=== PATIENT | male | born 1935 | race Caucasian/White ===

== ENCOUNTER 2016-05-21 16:04 | Inpatient (IN) | payer MEDICARE ==
[~2016-05-21] VITALS: Ht 172.7 cm; Wt 82.9 kg
[2016-05-21] VITALS (8 sets, daily range): BP systolic 134–152; BP diastolic 62–89; PULSE 65–92; RESP 18–26; O2SAT 92–98
[~2016-05-21 16:04] MED LIST: AMLO10TA3 PO; ASPI-973 PO; ATOR40TA69 PO; CHOL100045 PO; CILO100T2 PO; FOSI10TA2 PO; FUR20 PO; METO-272 PO; PANT40TA3 PO; PRED50TA PO
--- NOTE | 2016-05-21 16:25 | ED.REPORT ---
HPI-Dyspnea / Wheezing Date of Service May 21, 2016 ED Provider: Ha Dougherty MD Pt is an 80 year old male on 2L O2 at home presenting to the ED via EMS complaining of a yellow sputum producing cough onset a week ago. Associated symptoms include SOB and wheezing. Denies fever, vomiting, chest pain, abd pain. Pt was admitted to [facility] with healthcare related pneumonia 1 month ago. Nursing Notes Stated Complaint: SHORTNESS OF BREATH Chief Complaint: Respiratory Distress Nursing Notes Reviewed: Yes Allergies: Coded Allergies: No Known Allergies (Verified , 04/01/16) Scheduled Amlodipine (Amlodipine) 10 Mg Tablet 10 MG PO DAILY Aspirin (Aspirin) 81 Mg Tablet 81 MG PO DAILY Atorvastatin Calcium (Atorvastatin Calcium) 40 Mg Tablet 40 MG PO HS Cholecalciferol (Vitamin D3) (Vitamin D) 1,000 Unit Capsule 1,000 UNIT PO DAILY Cilostazol (Cilostazol) 100 Mg Tablet 100 MG PO BIDAC Fosinopril Sodium (Fosinopril Sodium) 10 Mg Tablet 10 MG PO HS Furosemide (Furosemide) 20 Mg Tab 20 MG PO QAM Metoprolol Succinate ER (Metoprolol Succinate ER) 50 Mg Tab.er.24h 50 MG PO QAM Pantoprazole DR (Pantoprazole DR) 40 Mg Tablet.dr 40 MG PO BID Prednisone (PredniSONE) 50 Mg Tablet 50 MG PO DAILY x 5 days General Time Seen by MD: 16:20 Chief Complaint Cough Hx Obtained From: Patient Arrived By: Ambulance Sudden in Onset?: No Onset Occurred: 1 week ago Symptom Duration: Since onset Severity: Current: No pain currently Severity: Maximum: No pain Recent Healthcare: Recent doctor visit, Recent hospitalization Similar Sx Previous: Yes Past Medical History Past Medical History Notes: Full Code Past Medical History HTN Gout Cardiomyopathy, ischemic Hyperlipidemia LDL goal <130 CAD Claudication Psoriasis Reports: Atrial fibrillation Smoking History Former Smoker Social History Alcohol Use: 1-3 per week Other Social History: Good social support, , Local resident Ambulatory Status Independent Review of Systems Constitutional: Denies: Fever Respiratory: Reports: Non-productive cough, Prod cough, yellow, Shortness of breath, Wheezing Cardiovascular: Denies: Chest pain Complete sys rev & neg: except as marked. GI: Denies: Abdominal pain, Vomiting Physical Exam Initial Vital Signs Vital Signs (First) Date Time Temp Pulse Resp B/P Pulse Ox O2 Delivery O2 Flow Rate FiO2 05/21/16 16:09 92 20 143/79 98 Nasal Cannula 4 Initial VS: Reviewed Head / Eyes: Atraumatic, Normocephalic, PERRL ENT: Mucous membranes moist, Conjunctiva normal, No scleral icterus Abdomen / GI: Soft, Non-tender, No guarding, No rebound, No distention Skin: Warm, Dry, No cyanosis Neurologic: Alert, Oriented, Nonfocal Psychiatric: Mood/affect normal, Behavior normal, Normal thought content General/Constitutional: Awake, Alert Wheezing / Retractions: Positive: Wheeze insp/exp diffuse (Bilateral) Coarse breath sounds bilaterally Cardiovascular: Heart rate NL, Regular rhythm, Heart sounds NL, Peripheral circulation NL Lower Extremity / Pelvis / MS: Neurologic intact, Vascular intact 1+ bilateral LE edema. Interpretation & Diagnostics Lab Results Interpretation Result Diagram: 05/21/16 1700 05/21/16 1700 Test 05/21/16 17:00 White Blood Count 20.1th/mm3 (3.8-10.1) Red Blood Count 3.72mil/mm3 (4.40-5.80) Hemoglobin 9.2g/dL (13.8-17.2) Hematocrit 31.9% (41.0-50.0) Mean Corpuscular Volume 85.8fL (81-100) Mean Corpuscular Hemoglobin 24.7pg (27.0-35.0) Mean Corpuscular Hemoglobin Concent 28.8% (32.0-37.0) Red Cell Distribution Width 26.6% (12.3-15.4) Platelet Count 161bil/L (150-400) Neutrophils (%) (Auto) 93.0% (40-74) Lymphocytes (%) (Auto) 2.3% (14-46) Monocytes (%) (Auto) 2.6% (4-12) Eosinophils (%) (Auto) 0% (0-5) Basophils (%) (Auto) 0.1% (0-3) Prothrombin Time 9.4sec (8.1-12.5) Prothromb Time International Ratio 0.88ratio Sodium Level 143mEq/L (134-144) Potassium Level 5.2mEq/L (3.5-5.2) Chloride Level 101mEq/L (97-108) Carbon Dioxide Level 29mmol/L (18-29) Blood Urea Nitrogen 44mg/dL (8-27) Creatinine 1.16mg/dL (0.76-1.27) Estimat Glomerular Filtration Rate 64mL/min (>59) Glucose Level 152mg/dL (60-99) Lactic Acid Level 2.9mmol/L (0.4-2.0) Calcium Level 8.6mg/dL (8.5-10.1) Total Bilirubin 0.5mg/dL (0.0-1.2) Aspartate Amino Transf (AST/SGOT) 29U/L (0-50) Alanine Aminotransferase (ALT/SGPT) 99U/L (0-44) Alkaline Phosphatase 113U/L (25-160) Troponin T 0.038ug/L (0.0-0.011) Pro-B-Type Natriuretic Peptide 37474ei/mL (0-486) Total Protein 6.2g/dL (6.4-8.4) Albumin 3.4g/dL (3.4-5.0) ECG Interpretation ECG Interpretation: Atrial fibrillation. Rate 98. Time: 16:44 Interpreted by: ED physician X-Ray Chest Interpretation Chest Xray Interpretation: IMPRESSION: 1. Decreased but not resolved right lower lobe pneumonia. 2. Mild diffuse interstitial infiltrates and mild cardiomegaly, suggesting mild superimposed congestive heart failure. Dictated by: Jeannie Jaramillo M.D. on 05/21/2016 at 16:53 View: Portable, 1 view Interpretation / Wet Read by: Interpret - Radiologist Re-Eval/Medical Decision Med Decision/Clinical Course 80-year-old male history of atrial fibrillation, CAD, recent admission for healthcare associated pneumonia presenting with shortness of breath from assisted living facility. Patient occurring 2-4 L oxygen. His baseline is 2 L. He is a very poor historian unable to get a good history. Chest x-ray with right lower lobe pneumonia. Troponins 0.03. BNP 11,000 baseline 3-4000. Lactate 2.9. VSS Patient will be admitted for elevated troponins, sepsis, healthcare associated pneumonia. Cannot rule out NSTEMI though his tachycardia and BNP suggest possibly demand ischemia. We will treat with heparin drip, triple antibiotics with a dose of vancomycin, Levaquin, Zosyn given in ER. Given 2 L normal saline for sepsis. Full code per patient. Re-Evaluation/Progress : Time of Eval: 17:55 Patient Status: Condition improved Re-Evaluation/Progress Note: Discussed plan for admission. Pt understands and agrees with plan. Counseled Regarding: Diagnosis, Lab results, Need for follow-up, When/why to return to ED Discharge & Departure Impression: Primary Impression: Sepsis Additional Impressions: Healthcare-associated pneumonia Elevated troponin Disposition: Home Discharge Condition All VS Reviewed: Yes Condition: Improved Referrals: Roge Salazar PA-C (PCP) Crit Care Except Billable Proc Time Spent: 30-74 minutes Services Performed: Patient management by me, Time spent at bedside, Reviewing test results, Reviewing imaging, Discussing patient care, Documentation in record, Time with fam/surrogate Scribe Attestation Portions of this note were transcribed by Letty. I, Dr. Dougherty personally performed the history, physical exam and medical decision-making; I reviewed and confirmed the accuracy of the information in the transcribed note. Signed by: [place], 05/21/2016 and 2399. copies to: Roge Salazar PA-C, Ben M MD May 21, 2016 16:25 LETTY HATFIELD May 21, 2016 16:32
--- NOTE | 2016-05-21 16:56 | DRSVH ---
PROCEDURE: X-RAY CHEST ONE VIEW, PORTABLE ([id number]) INDICATIONS: dyspnea TECHNIQUE: One view of the chest was acquired. COMPARISON: [facility], CR, XR CHEST 1VW (PORTABLE), 04/12/2016, 5:23. [facility], CR, XR CHEST 1VW (PORTABLE), 04/14/2016, 3:20. FINDINGS: Surgical changes and devices: Sternotomy. Lungs and pleura: Right lower lobe infiltrates have decreased. Mild diffuse interstitial infiltrates . No pleural effusions or pneumothorax. Lungs are clear. Mediastinum: Mediastinal contours appear normal. Heart size is mild increased. Bones and chest wall: No suspicious bony lesions. Overlying soft tissues appear unremarkable. IMPRESSION: 1. Decreased but not resolved right lower lobe pneumonia. 2. Mild diffuse interstitial infiltrates and mild cardiomegaly, suggesting mild superimposed congesti ve heart failure. Dictated by: Jeannie Jaramillo M.D. on 05/21/2016 at 16:53 Approved by: Jeannie Jaramillo M.D. on 05/21/2016 at 16:55
[2016-05-21 17:26] LABS: EOSINOPHILS % (AUTO) 0 % (0-5)
[2016-05-21 17:31] LABS: BASOPHILS % (AUTO) 0.1 % (0-3); MONOCYTES % (AUTO) 2.6 % (4-12); Mean Corpuscular Hemoglobin 24.7 pg (27.0-35.0); Mean Corpuscular Volume 85.8 fL (81-100); Platelet Count 161 bil/L (150-400)
[2016-05-21] MEDS ORDERED: levoFLOXacin Inj 750 MG in IV Premix 1 EACH IV ONE (17:50)
[2016-05-21] MEDS ORDERED: Vancomycin Dose per Pharmacist XX ONE (17:50)
[2016-05-21] MEDS ORDERED: Piperacillin-Tazo 3.375 Gm Inj 3.375 GM in Dextrose 5% Minibag Plus 50 ML IV ONE (17:50)
[2016-05-21] MEDS ORDERED: 0.9% Sodium Chloride 1,000 ML IV SCH (18:05)
[2016-05-21 18:10] LABS: TROPONIN T 0.038 ug/L (0.0-0.011)
[2016-05-21] MEDS ORDERED: Polyethylene Glycol (PEG) 17 Gm Powder PO PRN (18:10)
[2016-05-21] MEDS ORDERED: Ondansetron 2 mg/mL 2 mL Inj IVPUSH PRN (18:10)
[2016-05-21] MEDS ORDERED: Alum-Mag Hydrox-Simeth 30 mL Suspension PO PRN (18:10)
[2016-05-21 18:11] LABS: INR 0.88 ratio
[2016-05-21] MEDS ORDERED: Heparin 5,000 Unit/mL Inj IVPUSH ONE ×2 (18:20→21:55)
[2016-05-21] MEDS ORDERED: Heparin 25K Unit/500mL 0.45 NS 25,000 UNIT in IV Premix 1 EACH IV ONE (18:20)
--- NOTE | 2016-05-21 18:23 | PCM.HPMED ---
Subjective Date of Service May 21, 2016 Primary Provider: Admitting Physician: Primary Care Physician: Roge Salazar PA-C Attending Physician: Chief Complaint: shortness of breath History of Present Illness: 80 year old male with h/o Hypertension, Hyperlipidemia, CHF, on 2L O2 at home presented to the ED via EMS with c/o worsening shortness of breath and productive cough. He states that symptoms started 1 week ago which is gradually worsening and is now associated with yellowish sputum production. He denies any fever, chest pain, vomiting, diarrhea, abdominal pain. He was admitted to [facility] with healthcare related pneumonia 1 month ago. In ED he was tachycardic , mildly hypertensive, SpO2 98% on 4L NC oxygen. Labs were significant for severe leukocytosis (20.1), low hematocrit (31.9), elevated lactic acid (2.9), elevated troponin (0.038[place] [address]. Allergies Coded Allergies: No Known Allergies (Verified , 04/01/16) PMH Social History Hx Alcohol Use: Yes Hx Substance Use: No Hx Tobacco Use: Yes Smoking Status: Former Smoker Exam Vital Signs Vital Sign - Last Date Time Temp Pulse Resp B/P Pulse Ox O2 Delivery O2 Flow Rate FiO2 05/21/16 16:09 92 20 143/79 98 Nasal Cannula 4 Exam General: Awake, Alert Head / Eyes: Atraumatic, Normocephalic, PERRL ENT: Mucous membranes moist, Conjunctiva normal, No scleral icterus Respiratory: in mild respiratory distress, decreased breath sounds bilaterally, Wheezing / Retractions: Positive: Wheeze insp/exp diffuse (Bilateral), Coarse breath sounds bilaterally Cardiovascular: Regular rate and rhythm, no murmur, no gallop. Abdomen: Soft, Non-tender, No guarding, No rebound, No distention Skin: Warm, Dry, No cyanosis Neurologic: Alert, Oriented, Nonfocal Psychiatric: Mood/affect normal, Behavior normal, Normal thought content Lab and Diagnostics Result Diagram: 05/21/16 1700 X-Rays, CTs and MRIs CXR: IMPRESSION: 1. Decreased but not resolved right lower lobe pneumonia. 2. Mild diffuse interstitial infiltrates and mild cardiomegaly, suggesting mild superimposed congestive heart failure. Assessment & Plan Elevated troponin - ? NSTEMI - Started on heparin drip Pneumonia - Likely HCAP due to recent admission - Will start on broad spectrum antibiotics, vancomycin and zosyn - Blood culture x 2, Sputum culture CHF exacerbation - elevated pro BNP of 11,887 - Will start on IV lasix GI ppx: Pantoprazole DVT ppx: on heparin Anti emetics / Analgesics prn as per protocol Code: Full code Status: To be admitted as inpatient due to complexity of medical condition that will require more than two days of hospital stay. Pain Evaluation: Adequate Pain Control GI Prophylaxis: Proton Pump Inhibitor VTE Prophylaxis: Sub-Q Heparin (Unfractionated) Resuscitation Status: CPR: Attempt Resuscitation Caleb Troncoso MD May 21, 2016 18:23
--- NOTE | 2016-05-21 19:30 | NUR ---
Arrival on Floor Pt arrived on floor via gurney with IV Levaquin infusing. Pt denies any pain/discomfort. Family at bedside. 02 at 2L. Pt and family oriented to floor and use of call light.
--- NOTE | 2016-05-21 19:48 | PCM.CONPHA ---
Subjective Requesting Provider: Caleb Troncoso MD shortness of breath Reason for Pharmacy Consult: Vancomycin Dosing Assessment/Plan Assessment/Plan Vancomycin per pharmacy for patient with health care associated pneumonia with goal trough 15-20: Ht=68 inches Wt=82.9K Serum cr=1.16 Creatinine Clearance=47ml/min ([facility]) Vancomycin 1750mg IV x 1 load (20mg/kg) then 1500mg iv daily should produce a trough within the goal range (calculations confirmed in [facility]). A trough has been ordered for 192905/24/16. The pharmacy will adjust dosing as necessary , and follow daily progress. Sammi Pennington [facility] May 21, 2016 19:48
[2016-05-21] MEDS ORDERED: 0.9% Sodium Chloride 250 ML ONE (20:22)
[2016-05-21 20:29] LABS: APPEARANCE,URINE CLEAR (CLEAR,HAZY); COLOR,URINE YELLOW (YELLOW); OCCULT BLOOD,URINE TRACE (NEGATIVE); PH,URINE 5.5 (5.0-8.0); UROBILINOGEN,URINE NORMAL (NORMAL)
[2016-05-21] MEDS ORDERED: Vancomycin Inj 1,750 MG in Dextrose 5% 500 ML IV ONE (20:30)
[2016-05-21] MEDS: Furosemide 10 mg/mL 4 mL Inj IVPUSH SCH (20:39)
--- NOTE | 2016-05-21 21:30 | NUR ---
Admission Pt able to provided some answers r/t H&P. Med rec updated based on [facility] med list. Patient was asked about his other meds that were on his list last time he was here. Some meds were not in [facility]ie [facility]'s list. He does not remember them at this time. Will relay to Day RN to update in am. Per pt, he has a list but not here at this time. Addendum: 05/22/16 at 0544 by IVAN HART RN Family and patient expressed concern about being on blood thinners because of concern of bleeding. Family mentioned of patient having incident of coughing up blood and bleeding while on Warfarin before. Answered pt and pt's family questions.
[2016-05-21] MEDS ORDERED: Heparin 5,000 Unit/mL Inj IVPUSH PRN (21:55)
[2016-05-21] MEDS: Heparin 25K Unit/500mL 0.45 NS 25,000 UNIT in IV Premix 1 EACH IV SCH (22:22)
[2016-05-21] MEDS: Albuterol-Ipratropium 3 mL Inhalation Solution NEB PRN (22:33)
[2016-05-21] MEDS ORDERED: ALBU1.25 INHALATION (23:40)
[2016-05-21] MEDS ORDERED: DOCU250C2 PO (23:40)
[2016-05-21] MEDS ORDERED: MAALOX ADVANCED PO (23:40)
[2016-05-21] MEDS ORDERED: FURO40TA4 PO (23:40)
[2016-05-21] MEDS ORDERED: POTA10CA42 PO (23:40)
[2016-05-21] MEDS ORDERED: PANT40TA3 PO (23:40)
[2016-05-21] MEDS ORDERED: PRED50TA PO (23:40)
[2016-05-21] MEDS ORDERED: METO-274 PO (23:40)
[2016-05-21] MEDS ORDERED: MELA5TAB14 PO (23:40)
[2016-05-21] MEDS ORDERED: IPRA3AMP IH (23:40)
[2016-05-21] MEDS: Piperacillin-Tazo 3.375 Gm Inj 3.375 GM in Dextrose 5% Minibag Plus 50 ML IV SCH (23:49)
[2016-05-22] VITALS (10 sets, daily range): BP systolic 96–143; BP diastolic 64–91; PULSE 79–102; RESP 18–24; O2SAT 90–100
--- NOTE | 2016-05-22 04:56 | NUR ---
Telemetry Pt alert and oriented x3. Afib with HR 80s to 90s. Pt had 5 beats of Vtach. Pt was asymptomatic. made aware with new orders noted.. Tylenol given for pt's c/o knee discomfort. Blane patent with good UO. No bleeding noted/reported. Addendum: 05/22/16 at 0624 by IVAN HART RN Pt had about 13 beats of Vtach again this am. He was sleeping. Pt was asymptomatic. AIMEE Cervantespaged to
[2016-05-22 05:18] LABS: BASOPHILS % (AUTO) 0.1 % (0-3); EOSINOPHILS % (AUTO) 0 % (0-5); Mean Corpuscular Hemoglobin 24.6 pg (27.0-35.0); Mean Corpuscular Volume 86.5 fL (81-100); NEUTROPHILS % (AUTO) 92.1 % (40-74); Platelet Count 144 bil/L (150-400)
[2016-05-22] MEDS: Furosemide 10 mg/mL 4 mL Inj IVPUSH SCH (08:11)
[2016-05-22] MEDS: Pantoprazole 40 mg ER24 Tablet PO SCH (08:11)
[2016-05-22] MEDS: Piperacillin-Tazo 3.375 Gm Inj 3.375 GM in Dextrose 5% Minibag Plus 50 ML IV SCH ×2 (08:12→18:03)
[2016-05-22] MEDS: Vancomycin Dose per Pharmacist XX SCH (08:30)
[2016-05-22] MEDS: Albuterol-Ipratropium 3 mL Inhalation Solution NEB PRN (08:41)
[2016-05-22] MEDS ORDERED: AMLO10TA3 PO (09:44)
[2016-05-22] MEDS ORDERED: FOSI10TA2 PO (09:45)
--- NOTE | 2016-05-22 13:21 | NUR ---
Social Work Note: Initial Assessment Data& Assessment: EMR reviewed. SW met with pt and pt at bedside to discuss discharge planning, SW role explained. Trey Trotter is a 80 year old male admitted on 05/21/2016 for sepsis and healthcare assisted pneumonia. Pt has Medicare and [employer] supplemental insurance coverage. Pt is being followed by Roge AVINA for primary care. Pt came from [facility] where he was receiving rehab. Pt normally lives at home on [address] with his . Pt has been able to use a FWW recently for ambulation. Pt does not usually wear oxygen but has been requiring oxygen for the last month. Pt requires assistance with medication management and chores. Pt is otherwise independent at baseline with ADL's. Pt does not have a history with home health services. Pt does not have LTC insurance. Pt is a but not service connected. Pt explained he does not want to go back to [facility] for continued rehab and would rather go to a different facility. Pt explained [facility] and [facility] would be the top two preferences. SW confirmed with Brianna from [facility] that they are unable to accept new pt's at this time. [facility] admissions is closed on weekends. SW to follow up with [facility] tomorrow 05/23/2016 regarding referral. Pt and pt provided with SNF list for further preferences. Pt explained he would rather wait to review the list with his [facility]. Pt and pt also provided with [facility] paperwork to review and complete when possible. Pt and pt provided with SW phone number written on pt white board. Pt and pt deny any other needs at this time. SW to continue to follow. Plan: Anticipated discharge back to a SNF for continued rehab when medically ready. Pt explained he would prefer to not return to [facility]. SW to follow up with [facility] tomorrow regarding referral and follow up with pt regarding other SNF preferences. Pt and pt deny any other needs at this time. SW to continue to follow. ISHAAN Crews Addendum: 05/22/16 at 1333 by ISAI COSTELLO Amended: Links added.
--- NOTE | 2016-05-22 16:16 | PCM.PNMED ---
Subjective Date of Service May 22, 2016 Subjective The patient was seen and examined today. Patient complains of lethargy, shortness of breath, and generalized myalgias Exam Vital Signs Vital Sign - Last Date Time Temp Pulse Resp B/P Pulse Ox O2 Delivery O2 Flow Rate FiO2 05/22/16 13:30 36.4 102 20 122/64 96 Nasal Cannula 3.00 Intake and Output 05/21/16 05/21/16 05/22/16 Cumulative From/Thru 15:00 23:00 07:00 05/21/16 16:09 - 05/22/16 06:39 Intake Total 1523 ml 1523 ml Output Total 2175 ml 2175 ml Balance -652 ml -652 ml Intake Oral 736 ml 736 ml IV Total 787 ml 787 ml Output Urine Total 2175 ml 2175 ml Exam Physical Exam: GEN: Patient was awake, alert, responding appropriately to questions HEENT: PERRLA, EOMI, Neck soft supple, trachea midline, nomocephalic/atraumatic CV: +S1/S2, RRR, no murmurs auscultated Respiratory: Positive wheezing and rhonchi GI: +bowel sounds x4, soft, compressible, non TTP EXT: no c/c +2 pitting edema bilaterally Neuro: CN II-XII grossly intact Psych: mood and affect were appropriate IVs and Medications Medications Reviewed: Medications were reviewed in detail Medications Current Medications Sodium Chloride 1,000 ml @ 0 mls/hr Q0M IV; Start 05/21/16 at 18:05 Al Hydrox/Mg Hydrox/Simethicone 30 ml Q6H PRN PO; Start 05/21/16 at 18:10 Ondansetron HCl 4 to 8 mg Q4H PRN IVPUSH; Start 05/21/16 at 18:10 Senna 17.2 mg BID PRN PO; Start 05/21/16 at 18:10 Polyethylene Glycol 17 gm DAILY PRN PO; Start 05/21/16 at 18:10 Pharmacy Consult 1 ea 1 ea DAILY XX; Start 05/22/16 at 08:30 Piperacillin Sod/ Tazobactam Sod/ Dextrose/Water 50 ml @ 12.5 mls/hr Q8 IV Last administered on 05/22/16t 08:12; Admin Dose 12.5 MLS/HR; Start 05/22/16 at 00:30 Amlodipine Besylate 10 mg DAILY PO Last administered on 05/22/16 08:11; Admin Dose 10 MG; Start 05/22/16 at 08:30 Aspirin 81 mg DAILY PO Last administered on 05/22/16 08:11; Admin Dose 81 MG; Start 05/22/16 at 08:30 Atorvastatin Calcium 40 mg HS PO Last administered on 05/21/16 22:24; Admin Dose 40 MG; Start 05/21/16 at 21:00 Cholecalciferol 1,000 unit DAILY PO Last administered on 05/22/16 08:11; Admin Dose 1,000 UNIT; Start 05/22/16 at 08:30 Cilostazol 100 mg BID PO Last administered on 05/22/16 08:11; Admin Dose 100 MG ; Start 05/21/16 at 20:30 Furosemide 20 mg DAILY PO; Start 05/22/16 at 08:30; Stop 05/22/16 at 08:30; Status DC Pantoprazole 40 mg DAILYAC PO Last administered on 05/22/16 08:11; Admin Dose 40 MG; Start 05/22/16 at 07:30 Furosemide 40 mg 40 mg DAILY IVPUSH Last administered on 05/22/16 08:11; Admin Dose 40 MG; Start 05/21/16 at 18:15 Vancomycin HCl/ Dextrose/Water 500 ml @ 333.333 mls/hr DAILY@2030 IV; Start at 20:30 Heparin Sodium (Porcine) Per Protocol for a... PRN PRN IVPUSH; Start 05/21/16 at 21:55 Albuterol/ Ipratropium 3 ml Q6H PRN NEB Last administered on 05/22/16 08:41; Admin Dose 3 ML; Start 05/21/16 at 21:58 Acetaminophen 650 mg Q6H PRN PO Last administered on 05/22/16 12:52; Admin Dose 650 MG; Start 05/22/16 at 12:40 Lab and Diagnostics Result Diagram: 05/22/16 0430 05/22/16 0430 X-Rays, CTs and MRIs CXR: IMPRESSION: 1. Decreased but not resolved right lower lobe pneumonia. 2. Mild diffuse interstitial infiltrates and mild cardiomegaly, suggesting mild superimposed congestive heart failure. Assessment & Plan 80-year-old male with increasing shortness of breath with a history of CHF and possible new onset of pneumonia Elevated troponin - ?NSTEMI - Started on heparin drip -Currently trending troponins however this may be secondary to troponin leak will continue to monitor Leukocytosis most likely secondary to Pneumonia - Likely HCAP due to recent admission - Will start on broad spectrum antibiotics, vancomycin and zosyn - Patient is currently responding to antibiotic therapy white blood cell count has decreased from 20.1-17.1 - Blood culture x 2 pending, negative for influenza Sputum culture - We will continue to monitor CHF exacerbation - elevated pro BNP of 11,887 -Continue IV Lasix 40 mg daily patient's urinary output is -1.1 L we will consider adding an evening dose of Lasix - Continue oxygen as needed maintain oxygen saturations are 92% and above GI ppx: Pantoprazole DVT ppx: on heparin Anti emetics / Analgesics prn as per protocol Code: Full code Disposition: Patient is currently responding to antibiotic therapy as well as diuretic therapy. The patient is currently -1.1 L of fluid in his white blood cell count is trending down. We will continue to monitor the patient. GI Prophylaxis: Proton Pump Inhibitor VTE Prophylaxis: Sub-Q Heparin (Unfractionated) Resuscitation Status: CPR: Attempt Resuscitation Ana María Corcoran DO May 22, 2016 16:16
--- NOTE | 2016-05-22 19:01 | NUR ---
Respiratory and Heparin gtt Lungs sounds very wet, SOB with act and at rest. IV lasix and ABX scheduled. [place], O2 and STUDENT [employer]ISTRY PAST[employer] in place. Up to chair for meals. Heparin gtt continues at 950. values within goal this shift. Next PTT in AM. Small amount of blood with blowing nose this evening. Stool light brown and sent for testing.
[2016-05-23] VITALS (10 sets, daily range): BP systolic 93–166; BP diastolic 52–84; PULSE 91–111; RESP 20–28; O2SAT 93–99
[2016-05-23] MEDS: Piperacillin-Tazo 3.375 Gm Inj 3.375 GM in Dextrose 5% Minibag Plus 50 ML IV SCH ×4 (00:09→23:44)
[2016-05-23] MEDS: Heparin 25K Unit/500mL 0.45 NS 25,000 UNIT in IV Premix 1 EACH IV SCH (00:09)
[2016-05-23] MEDS: Albuterol-Ipratropium 3 mL Inhalation Solution NEB PRN (00:15)
[2016-05-23] MEDS ORDERED: diphenhydrAMINE 2.5 mg/mL 5 mL Syrup PO ONE (00:50)
[2016-05-23 06:06] LABS: BASOPHILS % (AUTO) 0.1 % (0-3); EOSINOPHILS % (AUTO) 0.1 % (0-5); MONOCYTES % (AUTO) 2.6 % (4-12); Mean Corpuscular Hemoglobin 24.3 pg (27.0-35.0); Mean Corpuscular Volume 85.7 fL (81-100); Platelet Count 147 bil/L (150-400)
--- NOTE | 2016-05-23 06:46 | NUR ---
Breathing Pattern Pt has been having difficulty in breathing. Neb Tx administered by RT seems ineffective. Pt has been breathing thru his mouth most of the time. Denies chest pain, but having moderate sob. Pt has not had much sleep and is saturating low 80's while asleep even with o2 4.5LPM.
[2016-05-23 07:51] LABS: TROPONIN T 0.045 ug/L (0.0-0.011)
[2016-05-23] MEDS: Pantoprazole 40 mg ER24 Tablet PO SCH (08:25)
[2016-05-23] MEDS: Vancomycin Dose per Pharmacist XX SCH (08:25)
[2016-05-23] MEDS: Furosemide 10 mg/mL 4 mL Inj IVPUSH SCH (08:25)
--- NOTE | 2016-05-23 09:06 | NUR ---
HUE signed. ISHAAN Pollock
--- NOTE | 2016-05-23 14:50 | NUR ---
Social Work-continued d/c planning: Data:EMR Reviewed. Pt is on day 2 of hospitalization for sepsis per H&P. Pt is not medically stable, anticipate several more days. SW followed up with pt, daughter, and at bedside to discuss discharge planning, SW role explained. Pt came to hospital from [facility]. Pt and family in agreement that pt will not return there at discharge. Daughter informed SW that their first choice is [facility]. SW explained that [facility] is not currently taking pt and SW spoke with Christiana Lucas at [facility] this morning and they are not taking pt's either due to flu. Daughter states the only other facilities they may consider would be [place]. SW called Renee at [place] and left message. SW called Renee at [place] and spoke with admissions Kia, no male beds, and no discharges scheduled for this week.Paperwork in the chart. SW will continue to follow. Assessment:Pt who would benefit from SNF. Plan:Pt/family not willing to have pt return to [facility]. SW has left message at Renee at [place]. Paperwork in the chart. SW will continue to follow. ISHAAN Pollock
--- NOTE | 2016-05-23 18:16 | PCM.PNMED ---
Subjective Date of Service May 23, 2016 Subjective Patient was seen and examined at bedside today. Patient seems to be lethargic, and reports shortness of breath. A discussion with the and daughter was held at bedside today and they state that he has never had a diagnosis And that this is a new diagnosis for him. Exam Vital Signs Vital Sign - Last Date Time Temp Pulse Resp B/P Pulse Ox O2 Delivery O2 Flow Rate FiO2 05/23/16 16:58 36.6 108 20 93/52 96 Room Air 05/23/16 10:59 5.00 Intake and Output 05/22/16 05/22/16 05/23/16 Cumulative From/Thru 15:00 23:00 07:00 05/21/16 16:09 - 05/23/16 06:39 Intake Total 250 ml 935 ml 1162 ml 3870 ml Output Total 750 ml 400 ml 400 ml 3725 ml Balance -500 ml 535 ml 762 ml 145 ml Intake Oral 935 ml 100 ml 1771 ml IV Total 250 ml 1062 ml 2099 ml Output Urine Total 750 ml 400 ml 400 ml 3725 ml # Bowel Movements 1 1 Exam GEN: Patient was awake, alert, responding appropriately to questions HEENT: PERRLA, EOMI, Neck soft supple, trachea midline, nomocephalic/atraumatic CV: +S1/S2, RRR, no murmurs auscultated Respiratory: Positive wheezing and rhonchi GI: +bowel sounds x4, soft, compressible, non TTP EXT: no c/c +2 pitting edema bilaterally Neuro: CN II-XII grossly intact Psych: mood and affect were appropriate IVs and Medications Medications Reviewed: Medications were reviewed in detail Medications Current Medications Al Hydrox/Mg Hydrox/Simethicone 30 ml Q6H PRN PO; Start 05/21/16 at 18:10 Ondansetron HCl 4 to 8 mg Q4H PRN IVPUSH; Start 05/21/16 at 18:10 Senna 17.2 mg BID PRN PO; Start 05/21/16 at 18:10 Polyethylene Glycol 17 gm DAILY PRN PO; Start 05/21/16 at 18:10 Pharmacy Consult 1 ea 1 ea DAILY XX; Start 05/22/16 at 08:30 Piperacillin Sod/ Tazobactam Sod/ Dextrose/Water 50 ml @ 12.5 mls/hr Q8 IV Last administered on 05/23/16 17:52; Admin Dose 12.5 MLS/HR; Start 05/22/16 at 00:30 Amlodipine Besylate 10 mg DAILY PO Last administered on 05/23/16 08:25; Admin Dose 10 MG; Start 05/22/16 at 08:30 Aspirin 81 mg DAILY PO Last administered on 05/23/16 08:25; Admin Dose 81 MG; Start 05/22/16 at 08:30 Atorvastatin Calcium 40 mg HS PO Last administered on 05/22/16 21:02; Admin Dose 40 MG; Start 05/21/16 at 21:00 Cholecalciferol 1,000 unit DAILY PO Last administered on 05/23/16 08:25; Admin Dose 1,000 UNIT; Start 05/22/16 at 08:30 Cilostazol 100 mg BID PO Last administered on 05/23/16 08:25; Admin Dose 100 MG ; Start 05/21/16 at 20:30 Furosemide 20 mg DAILY PO; Start 05/22/16 at 08:30; Stop 05/22/16 at 08:30; Status DC Pantoprazole 40 mg DAILYAC PO Last administered on 05/23/16 08:25; Admin Dose 40 MG; Start 05/22/16 at 07:30 Furosemide 40 mg 40 mg DAILY IVPUSH Last administered on 05/23/16 08:25; Admin Dose 40 MG; Start 05/21/16 at 18:15 Vancomycin HCl/ Dextrose/Water 500 ml @ 333.333 mls/hr DAILY@2030 IV Last administered on 05/22/16 21:01; Admin Dose 333.333 MLS/HR; Start 05/22/16 at 20 :30 Heparin Sodium (Porcine) Per Protocol for a... PRN PRN IVPUSH; Start 05/21/16 at 21:55 Albuterol/ Ipratropium 3 ml Q6H PRN NEB Last administered on 05/23/16 00:15; Admin Dose 3 ML; Start 05/21/16 at 21:58 Acetaminophen 650 mg Q6H PRN PO Last administered on 05/22/16 12:52; Admin Dose 650 MG; Start 05/22/16 at 12:40 Lab and Diagnostics Result Diagram: 05/23/16 0540 05/23/16 0540 X-Rays, CTs and MRIs CXR: IMPRESSION: 1. Decreased but not resolved right lower lobe pneumonia. 2. Mild diffuse interstitial infiltrates and mild cardiomegaly, suggesting mild superimposed congestive heart failure. Cardiac Echo Impressions Echocardiogram Report Name: JOSIE DE LEON Date: 04/02/2016 Height: 67 in Hospital Exam Location: [facility] Weight: 170 lb Gender: Male BSA: 1.9 m2 : 1935 Age: 80 yrs BP: 127/72 mmHg Reason For Study: Pneumonia Ordering Physician: Performed By: [facility] Interpretation Summary Left ventricular systolic function is mildly reduced with the ejection fraction visually estimated to be 50-55% with borderline global hypokinesis and more severe hypokinesis in the proximal inferior and inferoposterior segment which appears unchanged from the previous study. There is also a significant dyssynchronous contraction pattern, consistent with a conduction abnormality, and septal motion consistent with a post-operative state but there has been no significant change since the previous study. The right ventricle is not well visualized but grossly appears to be is mildly dilated with borderline reduced systolic function, and grossly appears slightly larger and less dynamic compared to the previous study. There is moderate pulmonary hypertension with the right ventricular systolic pressure estimated at 56 mmHg assuming a right atrial pressure of 15 mm Hg, and is higher compared to the previous study. The left atrium is moderately dilated while right atrial size is normal. The right atrium has mildly decreased in size since the prior echo exam. There is mild to moderate mitral regurgitation that appears slightly less prominent compared to the previous study and mild to moderate tricuspid regurgitation that appears unchanged. There is no other significant valvular heart disease. The patient was in atrial fibrillation with heart rates between 96-121 bpm during the exam which is considerably faster compared to the previous study. Assessment & Plan 80-year-old male with increasing shortness of breath with a history of CHF and possible new onset of pneumonia Elevated troponin - ?NSTEMI - Started on heparin drip -Currently trending troponins however this may be secondary to troponin leak will continue to monitor Leukocytosis most likely secondary to Pneumonia - Likely HCAP due to recent admission - Will start on broad spectrum antibiotics, vancomycin and zosyn - Patient is currently responding to antibiotic therapy white blood cell count has decreased from 20.1-->17.1-->15.7 today - Blood culture x 2 pending, negative for influenza Sputum culture - We will continue to monitor CHF exacerbation - elevated pro BNP of 11,887 -Continue IV Lasix 40 mg daily continue to monitor patient's urinary output and kidney function - Continue oxygen as needed maintain oxygen saturations are 92% and above - Patient had an echo done 04/02/2016 which stated that the patient had a decreased ejection fraction of 50-55% along with wall dyskinesia - Consult cardiology GI ppx: Pantoprazole DVT ppx: on heparin Anti emetics / Analgesics prn as per protocol Code: Full code Disposition: Patient is currently responding to antibiotic therapy. However the patient is now not diuresing as well as he had the last couple days. Will consult cardiology for further recommendations as the patient's volume overload is most likely secondary to CHF exacerbation. GI Prophylaxis: Proton Pump Inhibitor VTE Prophylaxis: Sub-Q Heparin (Unfractionated) Resuscitation Status: CPR: Attempt Resuscitation Time spent Greater than 35 minutes Ana María Corcoran DO May 23, 2016 18:16
--- NOTE | 2016-05-23 19:09 | NUR ---
Respiratory and C-Diff SOB and wet lungs sounds continue. IV lasix and sanchez, O2 and BOBBIN FIXER in place. Provider notified. strategic analyst notified and assessed. Notified of c-diff in history x 1mo ago, enteric precautions posted at this time.
[2016-05-23] MEDS ORDERED: Vancomycin Serum Trough XX ONE (19:30)
[2016-05-23] MEDS ORDERED: Furosemide 10 mg/mL 4 mL Inj IVPUSH ONE (20:30)
[2016-05-24] VITALS (10 sets, daily range): BP systolic 119–145; BP diastolic 63–76; PULSE 97–136; RESP 20–26; O2SAT 94–98
[2016-05-24] MEDS: Heparin 25K Unit/500mL 0.45 NS 25,000 UNIT in IV Premix 1 EACH IV SCH (02:35)
--- NOTE | 2016-05-24 04:48 | NUR ---
Respiratory / Insomnia Pt tachypneic at beginning of shift with coarse crackles and wheezes to lungs, denies feeling dyspneic but immediately desaturates on RA to 70s-80s. Pt afib 110s-120s. MD rivera, one time IVP 40mg Lasix administered with increased urine output on reassessment but no change to lung assessment. Pt on 4L oxymask at this time with SPO2 91-97%. Pt very cognizant of respiratory status, consistently reports efforts to breathe effectively. Pt c/o significant insomnia this shift, requests trazodone at HS without effectiveness on reassessment. MD rivera, PRN melatonin ordered and administered with pt resting upon reassessment. No c/o pain this shift.
[2016-05-24 06:19] LABS: BASOPHILS % (AUTO) 0.1 % (0-3); EOSINOPHILS % (AUTO) 0 % (0-5); MONOCYTES % (AUTO) 1.9 % (4-12); Mean Corpuscular Hemoglobin 24.8 pg (27.0-35.0); Mean Corpuscular Volume 84.5 fL (81-100); NEUTROPHILS % (AUTO) 94.5 % (40-74); Platelet Count 125 bil/L (150-400)
[2016-05-24] MEDS: Vancomycin Dose per Pharmacist XX SCH (08:30)
[2016-05-24] MEDS: Pantoprazole 40 mg ER24 Tablet PO SCH (09:03)
[2016-05-24] MEDS: Piperacillin-Tazo 3.375 Gm Inj 3.375 GM in Dextrose 5% Minibag Plus 50 ML IV SCH ×2 (09:04→16:25)
[2016-05-24] MEDS: Furosemide 10 mg/mL 4 mL Inj IVPUSH SCH (09:04)
--- NOTE | 2016-05-24 10:31 | NUR ---
Pletal medication is being held until Dr Corcoran can talk with cardiology about the medication.
[2016-05-24] MEDS: predniSONE 20 mg Tablet PO SCH (13:10)
--- NOTE | 2016-05-24 15:57 | PCM.PNMED ---
Subjective Date of Service May 24, 2016 Subjective Patient was examined at bedside today. Patient denies any chest pain, nausea, vomiting, diarrhea. Patient reports that he still having some shortness of breath and needs the oxygen. He also complains of lower extremity edema and insomnia. Exam Vital Signs Vital Sign - Last Date Time Temp Pulse Resp B/P Pulse Ox O2 Delivery O2 Flow Rate FiO2 05/24/16 15:03 36.8 97 22 143/73 94 OxyMask 4.00 Intake and Output 05/23/16 05/23/16 05/24/16 Cumulative From/Thru 15:00 23:00 07:00 05/21/16 16:09 - 05/24/16 06:58 Intake Total 85 ml 1111 ml 930 ml 5996 ml Output Total 900 ml 925 ml 5550 ml Balance 85 ml 211 ml 5 ml 446 ml Intake Oral 875 ml 100 ml 2746 ml IV Total 85 ml 236 ml 830 ml 3250 ml Output Urine Total 900 ml 925 ml 5550 ml # Bowel Movements 1 2 Exam Physical Exam: GEN: Patient was awake, alert, responding appropriately to questions HEENT: PERRLA, EOMI, Neck soft supple, trachea midline, nomocephalic/atraumatic CV: +S1/S2, RRR, Respiratory: Coarse breath sounds, positive wheezing GI: +bowel sounds x4, soft, compressible, non TTP EXT: no c/c 2+ pitting edema Neuro: CN II-XII grossly intact Psych: mood and affect were appropriate IVs and Medications Medications Current Medications Vancomycin HCl/ Dextrose/Water 500 ml @ 333.333 mls/hr DAILY@2030 IV Last administered on 05/23/16 20:40; Admin Dose 333.333 MLS/HR; Start 05/22/16 at 20 :30 Trazodone HCl 25 mg HS PRN PO Last administered on 05/23/16 20:51; Admin Dose 25 MG; Start 05/23/16 at 18:25 Melatonin 5 mg HS PRN PO Last administered on 05/23/16 22:42; Admin Dose 5 MG ; Start 05/23/16 at 22:10 Prednisone 40 mg DAILY PO Last administered on 05/24/16 13:10; Admin Dose 40 MG ; Start 05/24/16 at 12:30; Stop 05/28/16 at 08:31 Melatonin 5 mg HS PRN PO; Start 05/24/16 at 15:35 Lab and Diagnostics Result Diagram: 05/24/1660405/24/16 06 X-Rays, CTs and MRIs CXR: IMPRESSION: 1. Decreased but not resolved right lower lobe pneumonia. 2. Mild diffuse interstitial infiltrates and mild cardiomegaly, suggesting mild superimposed congestive heart failure. Cardiac Echo Impressions Echocardiogram Report Name: JOSIE DE LEON Date: 04/02/2016 Height: 67 in Hospital Exam Location: [facility] Weight: 170 lb Gender: Male BSA: 1.9 m2 : 1935 Age: 80 yrs BP: 127/72 mmHg Reason For Study: Pneumonia Ordering Physician: Performed By: [facility] Interpretation Summary Left ventricular systolic function is mildly reduced with the ejection fraction visually estimated to be 50-55% with borderline global hypokinesis and more severe hypokinesis in the proximal inferior and inferoposterior segment which appears unchanged from the previous study. There is also a significant dyssynchronous contraction pattern, consistent with a conduction abnormality, and septal motion consistent with a post-operative state but there has been no significant change since the previous study. The right ventricle is not well visualized but grossly appears to be is mildly dilated with borderline reduced systolic function, and grossly appears slightly larger and less dynamic compared to the previous study. There is moderate pulmonary hypertension with the right ventricular systolic pressure estimated at 56 mmHg assuming a right atrial pressure of 15 mm Hg, and is higher compared to the previous study. The left atrium is moderately dilated while right atrial size is normal. The right atrium has mildly decreased in size since the prior echo exam. There is mild to moderate mitral regurgitation that appears slightly less prominent compared to the previous study and mild to moderate tricuspid regurgitation that appears unchanged. There is no other significant valvular heart disease. The patient was in atrial fibrillation with heart rates between 96-121 bpm during the exam which is considerably faster compared to the previous study. Assessment & Plan 80-year-old male with increasing shortness of breath with a history of CHF and possible new onset of pneumonia Elevated troponin - ?NSTEMI - Discontinue Started on heparin drip -Troponins have been trended and a relatively the same. This is most likely secondary to a troponin leak and not an SC. The patient has been discontinued from heparin drip -Cardiology has been consulted Leukocytosis most likely secondary to Pneumonia - Likely HCAP due to recent admission - Will start on broad spectrum antibiotics, vancomycin and zosyn - Patient is currently responding to antibiotic therapy white blood cell count has decreased from 20.1-->17.1-->15.7 today - Blood culture x 2 pending, negative for influenza Sputum culture - We will continue to monitor Acute respiratory failure -Continue oxygen therapy -Start steroids 40 mg daily -Consider consultation to pulmonology if patient does not improve CHF exacerbation - elevated pro BNP of 11,887 -Continue IV Lasix 40 mg daily continue to monitor patient's urinary output and kidney function - Continue oxygen as needed maintain oxygen saturations are 92% and above - Patient had an echo done 04/02/2016 which stated that the patient had a decreased ejection fraction of 50-55% along with wall dyskinesia - Consult cardiology GI ppx: Pantoprazole DVT ppx: Per protocol pharmacy managing Anti emetics / Analgesics prn as per protocol Code: Full code Disposition: The patient is currently responding to antibiotic therapy as his leukocytosis has decreased to 13.1. Repeat chest x-ray will be performed today in order to reassess the patient's pneumonia status. The patient has had a history of increased fluid in the lungs and has had to have a thoracentesis. If the chest x-ray shows that there is something going on in the lungs and pulmonology may need to be consulted. Cardiology has been consulted and appreciate their recommendations as the patient is currently volume overloaded. Family discussion was held today with the and son and everyone is currently in agreement with the current plan and medical management. GI Prophylaxis: Proton Pump Inhibitor VTE Prophylaxis: Sub-Q Heparin (Unfractionated) VTE Mechanical Devices: Venous Foot Pump Resuscitation Status: CPR: Attempt Resuscitation Time spent Greater than 35 minutes Ana María Corcoran DO May 24, 2016 15:57
[2016-05-24] MEDS ORDERED: DVT Prophylaxis per Pharmacist XX ONE (17:00)
--- NOTE | 2016-05-24 17:48 | CONS ---
[address] [address] CONSULTATION REPORT PATIENT: JOSIE DE LEON : 1935 MR#: [id number] ADMIT: 05/21/2016 JOB ID: [id number] DATE OF SERVICE: 05/24/2016 CHIEF COMPLAINT: The patient comes in with increased shortness of breath. HISTORY OF PRESENT ILLNESS: The patient is an 80-year-old man who has a history of hypertension, history of CHF currently on 2 L at home. He came in to the ED complaining of worsening shortness of breath as well as a productive cough. He said the cough had some blood in it. He said prior to this admission he was actually doing pretty well, although he has been better recently admitted in the last month or so with pneumonia. It appears that he was discharged home on April 18, 2016. Diagnoses included acute hypoxic respiratory failure, C. diff, bilateral pleural effusions and hemoptysis. He was also treated for probable acute healthcare-associated pneumonia. He tells me that during that admission, he had a pleural effusion that was tapped and that helped significantly with his breathing. Currently, he still has a cough. He denies orthopnea. He does have lower extremity edema which may be improving, although he cannot qualify that. He cannot tell me if this is actually chronic in nature either. PAST MEDICAL HISTORY AND PROBLEM LIST: History of ischemic cardiomyopathy with history of atrial fibrillation. History of hyperlipidemia and hypertension. MEDICATIONS IN THE HOSPITAL: 1. Aspirin 81 mg a day. 2. Pantoprazole 40 daily. 3. Amlodipine 10 daily. 4. Melatonin. 5. Trazodone. 6. Vancomycin. 7. Atorvastatin. 8. Albuterol inhalers. 9. Pletal. ALLERGIES: No known drug allergies. SOCIAL HISTORY: No tobacco use. No significant alcohol use. REVIEW OF SYSTEMS: Overall health: He denies fevers or chills. GI: Denies stomach upset, blood in his stool. : No dysuria. No hematuria. He does have some chronic renal insufficiency. Neuro: No chronic headaches. Pulmonary: Increased shortness of breath. He denies a history of lung disease but has had pneumonias. Musculoskeletal: No acute joint pain, swelling. Derm: No rash or skin breakdown. Heme: No easy bruising or bleeding. Endocrine: No heat or cold intolerance. Psych: No acute issues. ENT: No sore throat. No difficulty swallowing. Psych: No acute issues. All other review of systems on a 12 point review of systems is negative. PHYSICAL EXAMINATION: Blood pressure 143/73, sats are 94% on 4 L, afebrile. General: Appearing somewhat short of breath on exam, but in no acute distress. Able to lie flat in bed. Head and neck exam: Normocephalic, atraumatic. Neck: no masses appreciated VAscular: no carotid bruits Heart exam: Irregular. I do not appreciate obvious murmurs, gallops or rubs. Lungs: Coarse breath sounds with expiratory wheezes. Abdomen: Soft, nontender. Back: No CVA tenderness to palpation. Extremities: With pitting edema up to the mid calf which is at least 1 to 2+. Good distal pulses. Warm. Skin with some chronic skin changes, possibly venous, but no skin breakdown. Neuro: Alert and oriented. Gait not tested. Psych: Appropriate mood and affect. ENT: mucous membranes moist - no erythema. Vision: grossly intact DIAGNOSTIC DATA: The EKG on May 21, 2016 shows atrial fibrillation with a rate about 98. It looks like back in March he was also in atrial fibrillation with rates in the 90s. Echocardiogram from April 02, 2006 shows an EF estimated 50-55% with borderline global hypokinesis, hypokinesis of the proximal inferior and posterior segment, unchanged. Significant synchronous pattern consistent with conduction abnormality. Right side is not visualized but appeared to be mildly dilated with borderline reduced systolic function and estimated right atrial pressures were high. IMPRESSION: The patient has fairly good left sided heart function. He apparently had elevated right-sided pressures. Last time he was in atrial fibrillation, remains in atrial fibrillation. His rates are not optimally controlled. They are not significantly high although at times they are in the low 100s. I need to do some research to see what has been done for this atrial fibrillation, but I am not sure that his heart rate control is adequate, and if that is the case, it could cause him to have heart failure especially if he had persistently high heart rates even when he gets sent home. I cannot decipher from the prior notes if anybody had considered putting him on rate control. PLAN/RECOMMENDATION: I am going to look to see if I can find old records to see if he is followed by the hybrid technologist and, if so, he has been on medications for rate control before. If not, I think we should try to get him on some beta mira to get better heart rates and to help diurese him. In the meantime, I understand he is getting another chest x-ray to see if he has any pleural effusions for which drainage might improve his breathing condition. I spent one hour reviewing the patient's records, reviewing his old echo, speaking with the patient, examining him and communicating with the hospitalist [place]
[2016-05-24] MEDS ORDERED: Vancomycin Serum Trough XX ONE ×2 (20:00→22:35)
[2016-05-24 20:12] LABS: INR 0.9 ratio
--- NOTE | 2016-05-24 21:58 | DRSVH ---
PROCEDURE: X-RAY CHEST ONE VIEW, PORTABLE ([id number]) INDICATIONS: sob and pneumonia TECHNIQUE: One view of the chest was acquired. COMPARISON: [facility], CR, XR CHEST 1VW (PORTABLE), 05/21/2016, 16:21. FINDINGS: Surgical changes and devices: Postsurgical changes are redemonstrated in the mediastinum. Lungs and pleura: No pleural effusions or pneumothorax. There are increased bilateral opacities wit h a perihilar predominance consistent with pulmonary edema and. Mediastinum: Mediastinal contours appear unchanged. Heart size is enlarged. Bones and chest wall: No suspicious bony lesions. Overlying soft tissues appear unremarkable. IMPRESSION: 1. Increased bilateral pulmonary edema which may be due to cardiogenic or noncardiogenic etiologies such as atypical pneumonia. Dictated by: Red Valero M.D. on 05/24/2016 at 21:55 Approved by: Red Valero M.D. on 05/24/2016 at 21:56
--- NOTE | 2016-05-24 22:11 | PCM.CONPHA ---
Subjective Date of Service: May 24, 2016 shortness of breath Reason for Pharmacy Consult: Anticoagulation Management Objective Vital Signs Date Time Temp Pulse Resp B/P Pulse Ox O2 Delivery O2 Flow Rate FiO2 05/24/16 21:35 105 20 97 OxyMask 4.00 05/24/16 20:29 36.8 109 22 145/76 94 OxyMask 4.00 05/24/16 17:44 Supplement Oxygen 05/24/16 17:15 118 05/24/16 17:06 36.5 114 20 132/76 94 OxyMask 4.00 05/24/16 15:03 36.8 97 22 143/73 94 OxyMask 4.00 05/24/16 11:23 36.3 136 24 119/64 94 OxyMask 4.00 05/24/16 10:26 Supplement Oxygen 05/24/16 08:45 115 20 97 OxyMask 3.50 05/24/16 05:47 36.6 114 26 145/75 97 OxyMask 4.00 05/24/16 01:34 36.7 112 24 129/63 98 OxyMask 4.00 Intake and Output 05/22/16 05/23/16 05/24/16 00:00 00:00 00:00 Intake Total 2708 ml 2358 ml Output Total 3325 ml 1300 ml Balance -617 ml 1058 ml Weight (Kilograms): 81.700 Height (Feet): 5 Height (Inches): 8.00 Test 05/21/16 17:00 05/21/16 19:49 05/22/16 04:30 05/22/16 10:30 Lactic Acid Level 2.9mmol/L (0.4-2.0) Pro-B-Type Natriuretic Peptide 95548hb/mL (0-486) Urine Color Yellow (YELLOW) Urine Appearance Clear (CLEAR,HAZY) Urine pH 5.5 (5.0-8.0) Urine Specific [place] 1.020 (1.003-1.035) Urine Protein Tracemg/dL (NEG,TRACE) Urine Glucose (UA) Negativemg/dL (NEGATIVE) Urine Ketones Negativemg/dL (NEGATIVE) Urine Occult Blood Trace (NEGATIVE) Urine Nitrite Negative (NEGATIVE) Urine Bilirubin Negative (NEGATIVE) Urine Urobilinogen Normalmg/dL (NORMAL) Urine Leukocyte Esterase Negative (NEGATIVE) Urine RBC 0-2/hpf (0-2) Urine WBC 0-5/hpf (0-5) Urine Epithelial Cells Occasional/hpf (NONE-MOD) Urine Crystals None seen (NONE SEEN) Urine Bacteria None/hpf (NONE-FEW) Urine Hyaline Casts None/lpf (NONE) Urine Granular Casts None seen (NONE SEEN) Urine Waxy Casts None seen (NONE SEEN) Urine Red Blood Cell Casts None seen (NONE SEEN) Urine White Blood Cell Casts None seen (NONE SEEN) Urine Mucus None seen (None Seen) Urine Trichomonas None seen (NONE SEEN) Urine Yeast None (NONE SEEN) Urinalysis Comment None Urine Culture Reflexed Not indicated Magnesium Level 1.8mg/dL (1.6-2.6) Total Creatine Kinase 40U/L (21-232) Creatine Kinase MB 7.2ng/mL (0.0-10.4) Creatine Kinase MB % 18.0% (0.0-5.0) Test 05/23/16 05:40 05/24/16 06:05 05/24/16 19:30 Troponin T 0.045ug/L (0.0-0.011) White Blood Count 13.1th/mm3 (3.8-10.1) Red Blood Count 3.35mil/mm3 (4.40-5.80) Hemoglobin 8.3g/dL (13.8-17.2) Hematocrit 28.3% (41.0-50.0) Mean Corpuscular Volume 84.5fL (81-100) Mean Corpuscular Hemoglobin 24.8pg (27.0-35.0) Mean Corpuscular Hemoglobin Concent 29.3% (32.0-37.0) Red Cell Distribution Width 24.9% (12.3-15.4) Platelet Count 125bil/L (150-400) Neutrophils (%) (Auto) 94.5% (40-74) Lymphocytes (%) (Auto) 2.6% (14-46) Monocytes (%) (Auto) 1.9% (4-12) Eosinophils (%) (Auto) 0% (0-5) Basophils (%) (Auto) 0.1% (0-3) Hematology Comments Sodium Level 138mEq/L (134-144) Potassium Level 3.7mEq/L (3.5-5.2) Chloride Level 93mEq/L (97-108) Carbon Dioxide Level 33mmol/L (18-29) Blood Urea Nitrogen 36mg/dL (8-27) Creatinine 1.46mg/dL (0.76-1.27) Estimat Glomerular Filtration Rate 49mL/min (>59) Glucose Level 97mg/dL (60-99) Calcium Level 8.2mg/dL (8.5-10.1) Total Bilirubin 0.7mg/dL (0.0-1.2) Aspartate Amino Transf (AST/SGOT) 27U/L (0-50) Alanine Aminotransferase (ALT/SGPT) 57U/L (0-44) Alkaline Phosphatase 73U/L (25-160) Total Protein 5.0g/dL (6.4-8.4) Albumin 2.8g/dL (3.4-5.0) Procalcitonin 0.39ng/mL (See Comment) Prothrombin Time 9.6sec (8.1-12.5) Prothromb Time International Ratio 0.90ratio Activated Partial Thromboplast Time 70.2sec (22.8-33.0) Vancomycin Level Trough 19.2mcg/mL Assessment/Plan Assessment/Plan Warfarin per Rx Indication: A-Fib INR Goal : 2 - 3 INR today 0.9; gave 2.5mg for tonight Daily INR ordered Escobar Hillman PharmD May 24, 2016 22:11
--- NOTE | 2016-05-24 22:41 | PCM.PHAPRO ---
Progress Date of Service: May 24, 2016 shortness of breath Vanco per Rx Trough @ 1930 was 19.2 RN administered 2029 dose @ 2017 Will reduce dose to 1250mg starting tomorrow Next trough on Monday, 30 mins before 7th dose Escobar Hillman PharmD May 24, 2016 22:41
[2016-05-25] VITALS (9 sets, daily range): BP systolic 109–135; BP diastolic 60–80; PULSE 61–100; RESP 20–23; O2SAT 93–96
[2016-05-25] MEDS: Piperacillin-Tazo 3.375 Gm Inj 3.375 GM in Dextrose 5% Minibag Plus 50 ML IV SCH ×3 (00:13→16:13)
[2016-05-25 02:01] LABS: Mean Corpuscular Hemoglobin 24.4 pg (27.0-35.0); Mean Corpuscular Volume 85.2 fL (81-100)
[2016-05-25 02:17] LABS: INR 0.88 ratio
[2016-05-25 02:27] LABS: Magnesium 2.1 mg/dL (1.6-2.6)
--- NOTE | 2016-05-25 05:18 | NUR ---
NOC-ABx/Respiration Pt has been saturating around low 80's and has been having difficulty breathing thru his nose. Currently on 4LPM Oxymask to help in oxygenation. Denies chest pain, n/v or abd discomfort. Will continue to monitor.
[2016-05-25] MEDS: predniSONE 20 mg Tablet PO SCH (07:38)
[2016-05-25] MEDS: Pantoprazole 40 mg ER24 Tablet PO SCH (07:38)
[2016-05-25] MEDS: Vancomycin Dose per Pharmacist XX SCH (08:30)
--- NOTE | 2016-05-25 09:48 | PROG NOTE ---
[address] [address] PROGRESS NOTE PATIENT: JOSIE DE LEON : 1935 MR#: [id number] ADMIT: 05/21/2016 JOB ID: [id number] DATE: 05/25/2016 CHIEF COMPLAINT: This is a followup to a visit for yesterday for this patient with increased shortness of breath and known coronary artery disease, history of mild cardiomyopathy and atrial fibrillation. SUBJECTIVE: The patient has been having some difficulty breathing through his nose. Yesterday I put him on metoprolol 25 b.i.d. to help control his heart rate and atrial fibrillation. Vital signs show blood pressure 129/70, heart rates in the 85-86, his sats are 94%-96% on 4 L. CURRENT MEDICATIONS: Include: 1. Pip-tazo. 2. Prednisone 40 daily. 3. Pantoprazole. 4. Aspirin 81 mg a day. 5. Amlodipine 10 daily. 6. Lipitor 40 q.h.s. 7. Cilostazol. 8. Metoprolol 25 b.i.d. 9. He is also on vancomycin for treatment of a possible pulmonary infection. IMAGING: Shows a chest x-ray that shows increased bilateral pulmonary edema. LABORATORIES: Today show a white count 10.8, H and H 8.1 and 28.3, platelets of a 119,000. These have been somewhat chronically low. Chemistry shows sodium 138, potassium 4.1, chloride and bicarbonate 90 and 38 respectively, BUN and creatinine 43 and 1.79, all increased since admission. Troponins have been very borderline elevated likely related to heart failure. I's and O's show some negative balance. I spent a considerable amount of time reviewing his old records. It appears that he did have a history of GI bleed and was assessed with colonoscopy as well as capsule endoscopy. The patient was discharged in June of 2015. At that time did not wish to go back on Coumadin. He was going to stay on aspirin alone. He had follow up capsule endoscopy which revealed possible gastric ulcerations and, therefore, PPI was recommended. In addition, his last visit with a hardness inspector was in the end of March in 2014. At that time he was on 50 mg of metoprolol with good blood pressures. 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 Last echocardiogram was performed in March 2016 showing EF 50%-55% with the inferior posterior hypokinesis. Right ventricle has borderline reduced systolic function, but there are elevated right-sided pressures. IMPRESSION: 1. The patient has a history of coronary artery disease with history of an old infarct revealed on prior echocardiograms as well as stress tests. He has been in atrial fibrillation and I am not certain in the period of time when he was discharged from the hospital last and went to rehabilitation if his heart rates have been adequately controlled. We initially were going to put him on anticoagulation for the atrial fibrillation. However, it appears that he has had problems with some gastrointestinal bleeding which has not been life-threatening, but he did not want to be back on Coumadin. Recommendations were to keep him on aspirin and a proton pump inhibitor. We have now put him on metoprolol. He is tolerating this well. I would increase him up to 50 b.i.d. and see if we can get better heart rate control in terms of the atrial fibrillation. 2. His chest x-ray does suggest he is in heart failure and will get a repeat echocardiogram just to confirm that the findings are stable, but I have also discussed his case with our poultry pathologist to see if they can help us in terms of diuresis on this patient given his known renal insufficiency. TIME SPENT: I spent greater than 45 minutes collecting old information on this patient, reviewing this information, discussing with the hospitalist as well as discussing his case with Nephrology. [place]
--- NOTE | 2016-05-25 10:35 | PCM.PHAPRO ---
Progress shortness of breath VANCOMYCIN PER PHARMACY With negative culture results thus far, vancomycin was d/c'd Lisandro Nuñez,PharmD Lisandro Nuñez May 25, 2016 10:35
--- NOTE | 2016-05-25 10:44 | PCM.PHAPRO ---
Progress shortness of breath WARFARIN MANAGEMENT PER PHARMACY -Pt does not want anticoag treatment for stroke prevention. Team d/c'd therapy. Lisandro Nuñez, PharmD Lisandro Nuñez May 25, 2016 10:44
--- NOTE | 2016-05-25 11:03 | NUR ---
HUE signed. ISHAAN Pollock
--- NOTE | 2016-05-25 11:36 | NUR ---
Social Work-continued d/c planning: Data:EMR Reviewed. Pt is on day 4 of hospitalization for sepsis per H&P. Pt is not medically stable anticipate several more days. JEMMA followed up with [facility], no beds. [facility]- currently has the flu not accepting pt. JEMMA spoke with Brianna at [facility] and she is unsure when they will be starting to take pt's again. JEMMA left message for [facility] to determine when they will start taking pt, awaiting a return call. JEMMA followed up with family. Family not willing to send pt back to [facility] and unwilling to provide any other alternative options then the facilities list above. Paperwork in the chart. JEMMA will continue to follow. Assessment:Pt who would benefit from SNF. Plan:JEMMA has left message at [facility]. [facility] not currently accepting pts, [facility] and [facility] have no beds. Paperwork in the chart. JEMMA will continue to follow. ISHAAN Pollock Addendum: 05/25/16 at 1459 by ADILENE DAWN SS JEMMA received call back from [facility] Kumari at [facility]. [facility] states they are now accepting new pt's and are willing to look at referral. JEMMA faxed clinicals to [phone] for review. JEMMA will continue to follow. ISHAAN Pollock
--- NOTE | 2016-05-25 12:50 | DRSVH ---
[facility] [address] [place] [address] Echocardiogram Report Name: JOSIE DE LEON Date: 05/25/2016 Height: 68 in Hospital Exam Location: [facility] Weight: 180 lb Gender: Male BSA: 2.0 m2 : 1935 Age: 80 yrs BP: 129/70 mmHg Reason For Study: Congestive Heart Failure Ordering Physician: Performed By: La Vásquez Interpretation Summary 1. Normal left ventricular size with moderately increased wall thickness with an estimated EF of 55% 2. Mildly dilated right ventricle with mild to moderately reduced systolic function. At least moderate tricuspid regurgitation. The estimated RVSP is 58 mm Hg 3. Moderate mitral regurgitation Compared to the previous study (images and report reviewed), the RV function appears somewhat less vigorous. The estimated right atrial pressure and estimated RVSP are similar. In 2012, the RV function was normal Procedure: A two-dimensional transthoracic echocardiogram with color flow and Doppler was performed. Comparison is made with the echocardiogram of 04/02/2016. The study quality was technically adequate. The patient was in atrial fibrillation with heart rates between 76-107 bpm during the exam. Left Ventricle: The left ventricle is normal in size. Left ventricular wall thickness is moderately increased. Left ventricular ejection fraction is estimated to be 55%. Hypokinesis of the basal inferolateral wall. Possible hypokinesis of the basal 1/4 of the inferior/inferoseptal segment. Diastolic function could not be accurately assessed due to atrial fibrillation. Right Ventricle: The right ventricle is mildly dilated. Right ventricular systolic function is mild to moderately reduced. TAPSE 0.9. Atria: The left atrium is moderately dilated. The right atrium is severely dilated. There is no Doppler evidence for an interatrial shunt. Mitral Valve: There is mild mitral annular calcification. There is moderate mitral regurgitation. Aortic Valve: The aortic valve is slightly calcified. The aortic valve is trileaflet. There is no hemodynamically significant valvular aortic stenosis. No aortic regurgitation is present. Tricuspid Valve: The tricuspid valve leaflets are thin and pliable. There is moderate tricuspid regurgitation. The right ventricular systolic pressure is estimated at 58 mmHg assuming a right atrial pressure of 15 mm Hg. Pulmonic Valve: The pulmonic valve is not well visualized. There is trace pulmonic regurgitation. Great Vessels: The aortic root is normal size. The ascending aorta is normal in size. The pulmonary is not well visualized. The IVC is dilated (diameter is greater than 2.1 cm) and it collapses less than 50% with a sniff. This suggests a high right atrial pressure of 15 mm Hg. Pericardium/ Pleura There is no pericardial effusion. MMode/2D Measurements & Calculations LVIDd: 4.9 cm LA dimension RA long axis: 6.0 cm LVOT diam: 2.0 cm LVIDs: 3.7 cm AoV Openin.7 cm FS: 23.8 % LA A2 area RA area: 26.1 cm Ao root diam: 3.3 cm EPSS: 0.77 cm RA vol: 96.0 ml Aortic Jxn: 2.4 cm IVSd: 1.4 cm RA : 49.1 ml/m2 asc Aorta Diam: 2.8 cm LVPWd: 1.4 cm LA A4 area LA length (vol) LA vol: 91.1 ml LA vol index IVC diam: 2.7 cm LVAd ap4 LVAd ap2 LV durham. diameter/BSA LV sys. diameter/BSA : 23.0 2m : 27.7 cm (cm/m^2): 2.5 (cm/m^2): 1.9 LVLd ap2: 7.6 cm EDV(MOD-sp2) EDV(sp2-el) : 86.7 ml RVD1 (basal) TAPSE: 0.90 cm Doppler Measurements & Calculations Ao V2 max MV E max scott Med Peak E' Scott TR max scott : 121.4 cm/sec : 109.4 cm/sec : 324.4 cm/sec Ao max PG E/E' med: 13.8 TR max PG : 5.9 mmHg Lat Peak E' Scott : 42.6 mmHg Ao mean PG PA V2 max E/E' lat: 11.4 : 124.0 cm/sec LVOT Max Scott E/e' average PA mean PG : 70.9 cm/sec ROMERO(I,D): 1.7 cm PA Accel Time sev ratio : 0.08 sec MV dec time Ao V2 mean: 78.7 cm/secLV V1 max PG MR PISA radius : 0.15 sec Ao V2 VTI: 17.5 cm ROMERO(V,D): 1.9 cm2 LV V1 VTI: 9.2 cm PA V2 mean ROMERO indexed to BSA : 76.8 cm/sec (cm^2/m^2): 0.86 Reading Physician:12:49 PM
[2016-05-25] MEDS: Albuterol-Ipratropium 3 mL Inhalation Solution NEB PRN ×2 (13:07→20:48)
--- NOTE | 2016-05-25 13:57 | PCM.PNMED ---
Subjective Date of Service May 25, 2016 Subjective Patient was examined at bedside today. Patient denies any chest pain, shortness of breath, nausea, vomiting, diarrhea. Exam Vital Signs Vital Sign - Last Date Time Temp Pulse Resp B/P Pulse Ox O2 Delivery O2 Flow Rate FiO2 05/25/16 13:09 85 20 94 OxyMask 4.00 05/25/16 12:25 36.8 122/65 Intake and Output 05/24/16 05/24/16 05/25/16 Cumulative From/Thru 15:00 23:00 07:00 05/21/16 16:09 - 05/25/16 06:02 Intake Total 733 ml 542 ml 7271 ml Output Total 1000 ml 450 ml 7000 ml Balance -267 ml 92 ml 271 ml Intake Oral 436 ml 200 ml 3382 ml IV Total 297 ml 342 ml 3889 ml Output Urine Total 1000 ml 450 ml 7000 ml # Bowel Movements 0 2 Exam Physical Exam: GEN: Patient was awake, alert, responding appropriately to questions HEENT: PERRLA, EOMI, Neck soft supple, trachea midline, nomocephalic/atraumatic CV: +S1/S2, tachycardia Respiratory: Coarse breath sounds, positive wheezing GI: +bowel sounds x4, soft, compressible, non TTP EXT: no c/c/+2 pitting edema in the lower extremities improved from yesterday Neuro: CN II-XII grossly intact Psych: mood and affect were appropriate IVs and Medications Medications Reviewed: Medications were reviewed in detail Medications Current Medications Trazodone HCl 25 mg HS PRN PO Last administered on 05/24/16 20:09; Admin Dose 25 MG; Start 05/23/16 at 18:25 Melatonin 5 mg HS PRN PO Last administered on 05/24/16 20:08; Admin Dose 5 MG ; Start 05/23/16 at 22:10 Prednisone 40 mg DAILY PO Last administered on 05/25/16 07:38; Admin Dose 40 MG ; Start 05/24/16 at 12:30; Stop 05/28/16 at 08:31 Melatonin 5 mg HS PRN PO; Start 05/24/16 at 15:35; Status Cancel Pharmacy Consult 1 ea DAILY@17 XX; Start 05/25/16 at 17:00; Stop 05/25/16 at 17:00 ; Status DC Metoprolol Tartrate 25 mg 25 mg BID PO Last administered on 05/25/16t 07:38; Admin Dose 25 MG; Start 05/24/16 at 20:30; Stop 05/25/16 at 09:04; Status DC Vancomycin HCl/ Dextrose/Water 250 ml @ 166.667 mls/hr Q24H IV; Start 05/25/16 at 20:30; Stop 05/25/16 at 20:30; Status DC Metoprolol Tartrate 50 mg BID PO; Start 05/25/16 at 20:30 Lab and Diagnostics Result Diagram: 05/25/16 0150 05/25/16 0150 X-Rays, CTs and MRIs CXR: IMPRESSION: 1. Decreased but not resolved right lower lobe pneumonia. 2. Mild diffuse interstitial infiltrates and mild cardiomegaly, suggesting mild superimposed congestive heart failure. Cardiac Echo Impressions Echocardiogram Report Name: JOSIE DE LEON Date: 04/02/2016 Height: 67 in Hospital Exam Location: [facility] Weight: 170 lb Gender: Male BSA: 1.9 m2 : 1935 Age: 80 yrs BP: 127/72 mmHg Reason For Study: Pneumonia Ordering Physician: Performed By: Krystal [facility]Dec[facility]IST [facility] Interpretation Summary Left ventricular systolic function is mildly reduced with the ejection fraction visually estimated to be 50-55% with borderline global hypokinesis and more severe hypokinesis in the proximal inferior and inferoposterior segment which appears unchanged from the previous study. There is also a significant dyssynchronous contraction pattern, consistent with a conduction abnormality, and septal motion consistent with a post-operative state but there has been no significant change since the previous study. The right ventricle is not well visualized but grossly appears to be is mildly dilated with borderline reduced systolic function, and grossly appears slightly larger and less dynamic compared to the previous study. There is moderate pulmonary hypertension with the right ventricular systolic pressure estimated at 56 mmHg assuming a right atrial pressure of 15 mm Hg, and is higher compared to the previous study. The left atrium is moderately dilated while right atrial size is normal. The right atrium has mildly decreased in size since the prior echo exam. There is mild to moderate mitral regurgitation that appears slightly less prominent compared to the previous study and mild to moderate tricuspid regurgitation that appears unchanged. There is no other significant valvular heart disease. The patient was in atrial fibrillation with heart rates between 96-121 bpm during the exam which is considerably faster compared to the previous study. Assessment & Plan 80-year-old male with increasing shortness of breath with a history of CHF and possible new onset of pneumonia Elevated troponin - ?NSTEMI - Discontinue Started on heparin drip -Troponins have been trended and a relatively the same. This is most likely secondary to a troponin leak and not an WA. The patient has been discontinued from heparin drip -Cardiology has been consulted and agrees that this is more likely a troponin leak and not an NSTEMI Leukocytosis most likely secondary to Pneumonia - Likely HCAP due to recent admission -Continue Zosyn discontinue vancomycin as there is little concern for MRSA, procalcitonin within normal limits - Patient is currently responding to antibiotic therapy white blood cell count has decreased from 20.1-->17.1-->15.7-->10.8 today - Blood culture x 2 negative 2 days, negative for influenza Sputum culture - We will continue to monitor Microcytic anemia -Patient is currently stable -Anticoagulation has been discontinued -We will continue to monitor Acute kidney injury -Creatinine today is 1.79. -Lasix has been discontinued -Consult nephrology for diuresis recommendations History of A. fib -Patient currently not on warfarin as per requested by patient -Rate control with metoprolol 50 twice a day as per cardiology recommendations -Cardiology following Acute respiratory failure -Continue oxygen therapy -Start steroids 40 mg daily for 5 days today is day 2/5 -Consider consultation to pulmonology if patient does not improve Acute on chronic diastolic CHF exacerbation - elevated pro BNP of 11,887 -Discontinue IV Lasix 40 mg daily continue to monitor patient's urinary output and kidney function - Continue oxygen as needed maintain oxygen saturations are 92% and above - Patient had an echo done 04/02/2016 which stated that the patient had a decreased ejection fraction of 50-55% along with wall dyskinesia -Repeat echo as per cardiology -Repeat chest x-ray yesterday shows worsening pulmonary edema secondary to CHF exacerbation - Consult cardiology GI ppx: Pantoprazole DVT ppx: Per protocol pharmacy managing Anti emetics / Analgesics prn as per protocol Code: Full code Disposition: The patient is currently responding well to antibiotic therapy and seems to be improving overall. Cardiology is in agreement that the patient's CHF exacerbation is also driving some of the patient's shortness of breath as well. However currently in the setting of ISELA Lasix has been discontinued. We will defer to nephrology for further recommendations as to diuresing this particular patient. GI Prophylaxis: Proton Pump Inhibitor VTE Prophylaxis: Sub-Q Heparin (Unfractionated) VTE Mechanical Devices: Venous Foot Pump Resuscitation Status: CPR: Attempt Resuscitation Ana María Corcoran DO May 25, 2016 13:57
--- NOTE | 2016-05-25 18:32 | CONS ---
[address] [address] CONSULTATION REPORT PATIENT: JOSIE DE LEON : 1935 MR#: [id number] ADMIT: 05/21/2016 JOB ID: [id number] DATE OF SERVICE: ATTENDING PHYSICIAN: Dr. Corcoran. HISTORY: The patient is an 80-year-old, white male who is known to our service from previous hospitalizations. He was admitted with shortness of breath on May 23. It was felt that he had some type of pneumonia and was started on vancomycin along with Zosyn. He has had some worsening shortness of breath and there was concern about possible decompensated congestive heart failure. Renal consultation is being sought for further evaluation and management of his fluid status. The patient has had an episode in the past of acute kidney injury. This resolved with conservative measures. At time of admission, his BUN and creatinine were 44 and 1.16. As noted above, he was started on vancomycin and Zosyn. A single level was obtained and this was on May 24, 2016 and a trough level was 19. Reviewing his vital signs, he has had blood pressures which have been averaging between 120 and 160, however, in reviewing these he has had several isolated dips of his systolic blood pressure into the 90s. Also, reviewing his intake and output, he has been diuresed for several days in a row and has had more urine output out than in. Also during the admission, his creatinine has progressively increased. On admission, his creatinine was 1.16. On May 22, his BUN and creatinine had risen to 42 and 1.24 on May 23 and continued to rise to 39 and 1.35. Yesterday, his BUN and creatinine were 36 and 1.46 and today his BUN and creatinine were 43 and 1.79. When I examined the patient, I noticed that he had dark-colored urine in his catheter tubing and in the catheter bag it was considerably darker urine. Obviously acute tubular necrosis is a prime consideration with this patient. Unfortunately, the patient has had a mental status change today and is quite confused and is unable to give me much additional information. Reviewing the patient's chart. I see that he was admitted for shortness of breath and productive cough. This been going on for approximately a week prior to admission and he had production of yellow sputum. He denied any chest pain, vomiting, diarrhea or chills. He had been admitted to a facility in [place] about a month ago for healthcare-acquired pneumonia. In the emergency department, he was tachycardic and hypertensive and had some mild hypoxia. This responded to fluids and to increased oxygen by nasal cannula. PAST MEDICAL HISTORY: Significant for hypertension with hypertensive heart disease and some mild hypertensive nephrosclerosis. There is also history of GERD and hyperlipidemia. Virtually all of the history has been obtained from the patient's chart. Otherwise, his past medical history is remarkable for gout, cardiomyopathy, coronary artery disease, peripheral vascular disease with claudication, atrial fibrillation and psoriasis. PAST SURGICAL HISTORY: The patient is unable to give me much information noted above. ALLERGIES: He is not allergic to any food or any medication. SOCIAL HISTORY: He states he drinks approximately 1-3 times per week and is and lives at home. MEDICATIONS: At time of my evaluation included: 1. Vancomycin. 2. Zosyn. 3. Metoprolol. 4. Prednisone. 5. Melatonin. 6. Trazodone. 7. Acetaminophen. 8. Amlodipine. 9. Aspirin. 10. Cholecalciferol. 11. Protonix. 12. Albuterol. 13. Ipratropium. 14. Pletal. FAMILY HISTORY: Unobtainable. REVIEW OF SYSTEMS: As detailed above but otherwise is unobtainable because of the patient's mental status. PHYSICAL EXAMINATION: Revealed a chronically ill, 80-year-old, white male who was barely able to answer any simple questions. He was not oriented, however, he was able to converse. His vital signs showed a temperature of 36.5, pulse was 83, respirations were 22 and blood pressure was 135/77. HEENT examination is remarkable for pale sclerae. There was some mild periorbital edema noted. Mucous membranes were moist. Neck is supple without adenopathy, thyromegaly, however, there was some jugular venous distention noted at approximately 45 degrees. Pulmonary exam showed diffuse rhonchi and a few end-expiratory wheezes. There is also evidence of bibasilar rales. Heart was irregularly irregular. Abdomen was distended with normal bowel sounds. There was some mild diffuse tympany but no tenderness, rebound, guarding, masses or hepatosplenomegaly. Extremities do not show any significant clubbing, cyanosis, or edema. Skin turgor was slightly diminished and there was no evidence of any rashes. LABORATORY EXAMINATION: This morning, his white count was 10.61 when on admission it was 21.1. Today, his hemoglobin is 8.1, hematocrit 28.3, red cell indices showed normochromic, hypochromic indices with a mild thrombocytopenia. This morning his sodium is 138, potassium 4.0, chloride 90, CO2 of 30, BUN and creatinine were 43 and 1.79 and his glucose is 167. Liver function studies were remarkable only for a mild elevation in the ALT at 56. His albumin was 3.0. Urinalysis at time of admission showed a specific gravity 1.020, pH is 5.5. Tests for protein, occult blood were mildly positive and microscopic exam was otherwise unremarkable. His most recent chest x-ray obtained yesterday showed some mild increase in vascularity consistent either with pulmonary edema or a pneumonic process. IMPRESSION: 1. Acute kidney injury with acute tubular necrosis secondary to hypotension and medication. 2. Hypertension with hypertensive heart disease and hypertensive nephrosclerosis. 3. Normocytic normochromic anemia which appears to be multifactorial. 4. Congestive heart failure. RECOMMENDATION: 1. I have some concerns about his renal status and would like to hold any further diuretics for now and I would like to give him a liter of half-normal saline over approximately 8 hours. 2. I would like to check a renal ultrasound. 3. I would like to check a urinalysis. 4. We need to cautiously follow his intake, output, and vital signs. Once again, I would like to thank you for allowing me to participate in the care of this unfortunate patient. I will be following him closely with you.
[2016-05-25] MEDS ORDERED: levoFLOXacin 750 mg Tablet PO SCH (20:30)
[2016-05-25 20:33] LABS: APPEARANCE,URINE CLEAR (CLEAR,HAZY); COLOR,URINE YELLOW (YELLOW); OCCULT BLOOD,URINE LARGE (NEGATIVE); UROBILINOGEN,URINE NORMAL (NORMAL)
--- NOTE | 2016-05-25 20:33 | DRSVH ---
PROCEDURE: US RENAL SONOGRAM INDICATIONS: mary TECHNIQUE: Real-time scanning was performed of the kidneys and bladder, with image documentation. COMPARISON: None. FINDINGS: Kidneys: Kidneys are normal in size. Right kidney measures 8.5 cm long; left kidney measures 10.1 c m long. Right renal cortical thickness is 1.0 cm; left renal cortical thickness is 1.2 cm. right kid getachew is mildly echogenic. Mild left pelvocaliectasis is noted. No suspicious solid mass lesions. Bladder: Arguelles catheter in place. No ureteral jets identified. Miscellaneous: No free pelvic fluid. IMPRESSION: 1. Mildly atrophic, echogenic right kidney patible medical renal disease. 2. Mild left renal pelvocaliectasis. Dictated by: Valeria Borrego MD, PhD on 05/25/2016 at 20:29 Approved by: Valeria Borrego MD, PhD on 05/25/2016 at 20:31
[2016-05-25] MEDS ORDERED: Furosemide 10 mg/mL 4 mL Inj IVPUSH ONE (23:30)
--- NOTE | 2016-05-25 23:36 | ABG ---
DateTimeAnalyzed 23:31:00 -_ pH ____7.248 - 7.350 7.450 pCO2 ___87.0__ -mmHg 35.0 45.0 pO2 ___73.1__ -mmHg 69.0 116 HCO3- ___36.7__ -mmol/L 22.0 26.0 ABE ____8.3__ -mmol/L -2.0 2.0 tHb ____8.1__ -g/dL O2Hb ___91.6__ -% COHb ____1.7__ -% MetHb ____1.1__ -% sO2 ___94.2__ -% 25.0 FIO2 ___40.0__ -% Drawn By af - Date/Time Notified____ 23:36:00 -_ Notified By AF - Notified Whom ___Dr. Fuimaono - B 764 -mmHg tO2 ___10.5__ -Vol% OrderingPhysicianInitials mf - Koko test _Positive -
[2016-05-26] VITALS (15 sets, daily range): BP systolic 99–127; BP diastolic 46–71; PULSE 50–108; RESP 16–34; O2SAT 91–97
[2016-05-26] MEDS: Piperacillin-Tazo 3.375 Gm Inj 3.375 GM in Dextrose 5% Minibag Plus 50 ML IV SCH ×4 (00:30→17:14)
--- NOTE | 2016-05-26 01:08 | PCM.PNMED ---
Subjective Date of Service May 26, 2016 Subjective Cross cover note Paged by nurse who was concerned about the patient being confused. She also reported increasing work of breathing. ABG requested which showed Respiratory acidosis. Plan: Transfer to [facility] to initiate BIPAP Lasix 40 mg IV also given as pulmonary congestion is also suspected Maurice Yi MD May 26, 2016 01:08
--- NOTE | 2016-05-26 02:54 | ABG ---
DateTimeAnalyzed 02:50:00 -_ pH ____7.413 - 7.350 7.450 pCO2 ___57.9__ -mmHg 35.0 45.0 pO2 ___73.1__ -mmHg 69.0 116 HCO3- ___36.2__ -mmol/L 22.0 26.0 ABE ___10.6__ -mmol/L -2.0 2.0 tHb ____7.8__ -g/dL O2Hb ___93.9__ -% COHb ____2.0__ -% MetHb ____1.0__ -% sO2 ___96.8__ -% 25.0 FIO2 ___35.0__ -% CPAP ___20.0__ -cmH2O PEEP ____8.0__ -cmH2O Drawn By AF - Date/Time Notified____ 02:53:00 -_ Spontaneous_RR ___22.0__ -b/min Oxygen Device 1 ____BIPAP - Notified By AF - Notified Whom _Bruce RN - B 764 -mmHg tO2 ___10.4__ -Vol% Koko test _Positive -
--- NOTE | 2016-05-26 03:52 | NUR ---
Respiratory/ mentation/ Transferred to PCC room 2027 Patient having difficulty breathing. 1/2NS infusing at 60mls/hr. Patient restless insisted on getting up to chair 2PA. On increased to 5L via oxymask o2 maintained above 90%. lungs moist and coarse throughout. RT called for breathing treatment. Patient encouraged to cough and deep breathe. patient using IS and pickle at bedside. 02 saturations 97% on 5L patient decreased to baseline 4L via oxymask. Audible crackles heard throughout lungs. paged new order to d/c IV fluids. Patient called and helped back to bed. 02 desat to 70% on RA. oxymask placed back on 4L patient increased to 90%. Patient started to have a glazed over eye appearance. Was easily aroused. started trying to drink a "beer" with his hands. became increasingly agitated over wearing 02. Patient continued to desat on 4L via oxymask. charge nurse called. vitals stable. blood sugar 178. 02 increased to 6L via NC. patient encouraged to cough. 02 at 85-90%. notified new order for IV lasix. and stat ABG. Lasix given ABG showing CO2 of 87. Patient transferred to PCC room 2027. Report given to Keshav MORELAND
--- NOTE | 2016-05-26 05:34 | NUR ---
Transfer [place] [facility] [place] [facility] to room 2027, disoriented , ABG's indicate Respiratory Acidosis , ON BiPap, 40% Fio2 . Refused AM Lab Draw, . Tele: A-Brittney 90's @ person assist , Blane draining lt brown urine to gravity , Saline locked x2 Described as having Hospital Psychosis .
[2016-05-26 06:46] LABS: BASOPHILS % (AUTO) 0 % (0-3); EOSINOPHILS % (AUTO) 0 % (0-5); MONOCYTES % (AUTO) 1.7 % (4-12); Mean Corpuscular Hemoglobin 24.8 pg (27.0-35.0); Mean Corpuscular Volume 84.8 fL (81-100); NEUTROPHILS % (AUTO) 95.4 % (40-74); Platelet Count 118 bil/L (150-400)
[2016-05-26 07:04] LABS: INR 0.9 ratio
[2016-05-26 07:11] LABS: Unsaturated Iron Binding 230.1 ug/dL
[2016-05-26] MEDS ORDERED: 0.9% Sodium Chloride 250 ML ONE (09:19)
[2016-05-26] MEDS: predniSONE 20 mg Tablet PO SCH (09:23)
[2016-05-26] MEDS: Pantoprazole 40 mg ER24 Tablet PO SCH (09:23)
[2016-05-26] MEDS ORDERED: Furosemide 10 mg/mL 10 mL Inj IVPUSH ONE (09:55)
--- NOTE | 2016-05-26 11:39 | PCM.PNMED ---
Subjective Date of Service May 26, 2016 Subjective Patient's overall condition is beginning to worsen. He has had some increase in his BUN and creatinine and increasing confusion. Apparently he was hospitalized recently for hemoptysis and sent to another hospital and subsequently discharged. During evaluation in March he was found to have low C3 level, strongly positive rheumatoid factor, positive SINTIA with a homogeneous pattern of 1-320, slightly positive double-stranded DNA and anti- GBM. Today I personally reviewed his urine was found to have numerous red cells, scattered white cells, and a number of granular/rebound cast. No red cell casts were noted on the slide. He also is having some increased respiratory difficulties and his vancomycin level today is 25. His I's and O's from yesterday. Showed 1331 in and 1250 out. His sodium is 138 , potassium 4.4, chloride of 91, CO2 of 33, BUN and creatinine were 58 and 2.32. Exam Vital Signs Vital Sign - Last Date Time Temp Pulse Resp B/P Pulse Ox O2 Delivery O2 Flow Rate FiO2 05/26/16 10:32 105/66 05/26/16 08:30 87 16 93 35 05/26/16 06:06 37.0 BiPAP 05/25/16 23:21 5.00 Intake and Output 05/25/16 05/25/16 05/26/16 Cumulative From/Thru 15:00 23:00 07:00 05/21/16 16:09 - 05/25/16 18:43 Intake Total 789 ml 8060 ml Output Total 800 ml 7800 ml Balance -11 ml 260 ml Intake Oral 712 ml 4094 ml IV Total 77 ml 3966 ml Output Urine Total 800 ml 7800 ml # Bowel Movements 4 6 Exam Patient is unable to answer even the simplest of questions secondary to cloudy sensorium and overworked delirium. Sclera are pale with some mild periorbital edema. Neck is supple without adenopathy or thyromegaly however he does have venous distention. Lungs by O Wells' 1 throughout. With diffuse end expiratory wheezes noted. His heart was irregularly irregular. Abdomen is soft without any tenderness, rebound, guarding, masses, or hepatosplenomegaly. Extremities showed some generalized edema is mild. Skin turgor is good and there was no evidence of any rashes. IVs and Medications Medications Reviewed: Medications were reviewed in detail Lab and Diagnostics Result Diagram: 05/26/1662705/26/16627 X-Rays, CTs and MRIs CXR: IMPRESSION: 1. Decreased but not resolved right lower lobe pneumonia. 2. Mild diffuse interstitial infiltrates and mild cardiomegaly, suggesting mild superimposed congestive heart failure. Cardiac Echo Impressions Echocardiogram Report Name: JOSIE DE LEON Date: 04/02/2016 Height: 67 in Hospital Exam Location: [facility] Weight: 170 lb Gender: Male BSA: 1.9 m2 : 1935 Age: 80 yrs BP: 127/72 mmHg Reason For Study: Pneumonia Ordering Physician: Performed By: Krystal [facility] Interpretation Summary Left ventricular systolic function is mildly reduced with the ejection fraction visually estimated to be 50-55% with borderline global hypokinesis and more severe hypokinesis in the proximal inferior and inferoposterior segment which appears unchanged from the previous study. There is also a significant dyssynchronous contraction pattern, consistent with a conduction abnormality, and septal motion consistent with a post-operative state but there has been no significant change since the previous study. The right ventricle is not well visualized but grossly appears to be is mildly dilated with borderline reduced systolic function, and grossly appears slightly larger and less dynamic compared to the previous study. There is moderate pulmonary hypertension with the right ventricular systolic pressure estimated at 56 mmHg assuming a right atrial pressure of 15 mm Hg, and is higher compared to the previous study. The left atrium is moderately dilated while right atrial size is normal. The right atrium has mildly decreased in size since the prior echo exam. There is mild to moderate mitral regurgitation that appears slightly less prominent compared to the previous study and mild to moderate tricuspid regurgitation that appears unchanged. There is no other significant valvular heart disease. The patient was in atrial fibrillation with heart rates between 96-121 bpm during the exam which is considerably faster compared to the previous study. Assessment & Plan Impression #1 acute tubular necrosis #2 pulmonary renal syndrome #3 vancomycin toxicity #4 pulmonary edema Recommendations #1 I would like to go ahead and give him 80 mg of Lasix IV and increase his pulmonary toilet. Will repeat this later today and in the meantime I would like to repeat all of his rheumatological workup. GI Prophylaxis: Proton Pump Inhibitor VTE Prophylaxis: Sub-Q Heparin (Unfractionated) VTE Mechanical Devices: Venous Foot Pump Resuscitation Status: CPR: Attempt Resuscitation Alessandro Wilkerson DO May 26, 2016 11:38
--- NOTE | 2016-05-26 12:30 | NUR ---
Skin breakdown noted During AM assessment blanchable redness noted on bridge of nose while taking off BIPAP to eat. When taking off BIPAP at noontime for lunch, reddened, possible open area with some weeping noted. Wound care consulted, took off old dressing, applied new meplix. Respiratory at the bedside, changed BIPAP mask.
--- NOTE | 2016-05-26 14:32 | PCM.PNMED ---
Subjective Date of Service May 26, 2016 Subjective He is on BiPAP. He denies any chest or abdominal pain. Family notes some confusion and some hallucinations which is unusual for him. He has had a cough productive of yellow to green phlegm. No fevers or chills. No nausea or diarrhea. No problems with urination. Exam Vital Signs Vital Sign - Last Date Time Temp Pulse Resp B/P Pulse Ox O2 Delivery O2 Flow Rate FiO2 05/26/16 12:45 60 22 116/57 97 BiPAP 05/26/16 12:00 40 05/26/16 06:06 37.0 05/25/16 23:21 5.00 Intake and Output 05/25/16 05/25/16 05/26/16 Cumulative From/Thru 15:00 23:00 07:00 05/21/16 16:09 - 05/25/16 18:43 Intake Total 789 ml 8060 ml Output Total 800 ml 7800 ml Balance -11 ml 260 ml Intake Oral 712 ml 4094 ml IV Total 77 ml 3966 ml Output Urine Total 800 ml 7800 ml # Bowel Movements 4 6 Exam He is awake and able to answer simple questions. He is on a BiPAP. Anicteric sclerae Normal neck normal neck veins. Lungs with 2/4 breath sounds and expiratory wheezing. No rhonchi or rales. Heart is regular without murmur Abdomen is soft nontender. Extremities notable for 1+ edema bilaterally. Pedal pulses. IVs and Medications Medications Reviewed: Medications were reviewed in detail Lab and Diagnostics Result Diagram: 05/26/1662705/26/16627 X-Rays, CTs and MRIs CXR: IMPRESSION: 1. Decreased but not resolved right lower lobe pneumonia. 2. Mild diffuse interstitial infiltrates and mild cardiomegaly, suggesting mild superimposed congestive heart failure. Cardiac Echo Impressions Echocardiogram Report Name: JOSIE DE LEON AStudy Date: 04/02/2016 Height: 67 in Hospital Exam Location: [facility] Weight: 170 lb Gender: Male BSA: 1.9 m2 : 1935 Age: 80 yrs BP: 127/72 mmHg Reason For Study: Pneumonia Ordering Physician: Performed By: Krystal Garcia [facility] Interpretation Summary Left ventricular systolic function is mildly reduced with the ejection fraction visually estimated to be 50-55% with borderline global hypokinesis and more severe hypokinesis in the proximal inferior and inferoposterior segment which appears unchanged from the previous study. There is also a significant dyssynchronous contraction pattern, consistent with a conduction abnormality, and septal motion consistent with a post-operative state but there has been no significant change since the previous study. The right ventricle is not well visualized but grossly appears to be is mildly dilated with borderline reduced systolic function, and grossly appears slightly larger and less dynamic compared to the previous study. There is moderate pulmonary hypertension with the right ventricular systolic pressure estimated at 56 mmHg assuming a right atrial pressure of 15 mm Hg, and is higher compared to the previous study. The left atrium is moderately dilated while right atrial size is normal. The right atrium has mildly decreased in size since the prior echo exam. There is mild to moderate mitral regurgitation that appears slightly less prominent compared to the previous study and mild to moderate tricuspid regurgitation that appears unchanged. There is no other significant valvular heart disease. The patient was in atrial fibrillation with heart rates between 96-121 bpm during the exam which is considerably faster compared to the previous study. Assessment & Plan 80-year-old male with increasing shortness of breath with a history of CHF and possible new onset of pneumonia 1. Acute hypoxic respiratory failure. The patient is to maintain on BiPAP since last night. He is somewhat improved. There is a concern for possible pneumonia as well as pulmonary edema secondary to diastolic heart failure. Plan is to diurese and follow clinically as well as continue the current antibiotics, Zosyn. 2. Acute on chronic diastolic heart failure. The plan is as above to continue to diuresis. 3. Acute kidney injury. Patient was seen by Dr. Wilkerson given 1 dose of Lasix IV. The patient does have evidence of global anasarca with 2+ edema in his legs today. We will continue to diuresis to see if this improves both anasarca as well as his pulmonary status. 4. Possible pneumonia - Likely HCAP due to recent admission -Continue Zosyn and follow clinically 5. Microcytic anemia Hemoccult stools and follow hematocrit 6. Chronic atrial fibrillation, POA. -Patient currently not on warfarin as per requested by patient -Rate control with metoprolol 50 twice a day as per cardiology recommendations 7. Possible COPD exacerbation. Continue patient's steroids as currently dosed and bronchodilator treatments. GI ppx: Pantoprazole DVT ppx: Per protocol pharmacy managing Anti emetics / Analgesics prn as per protocol Code: Full code Disposition: The patient is currently responding well to antibiotic therapy and seems to be improving overall. Cardiology is in agreement that the patient's CHF exacerbation is also driving some of the patient's shortness of breath as well. However currently in the setting of ISELA Lasix has been discontinued. We will defer to nephrology for further recommendations as to diuresing this particular patient. GI Prophylaxis: Proton Pump Inhibitor VTE Prophylaxis: Sub-Q Heparin (Unfractionated) VTE Mechanical Devices: Venous Foot Pump Resuscitation Status: CPR: Attempt Resuscitation Pain Evaluation: Adequate Pain Control GI Prophylaxis: Proton Pump Inhibitor VTE Prophylaxis: Sub-Q Heparin (Unfractionated) VTE Mechanical Devices: Venous Foot Pump Resuscitation Status: CPR: Attempt Resuscitation Time spent 25 minutes Koko Kay MD May 26, 2016 14:32 Time spent 25 minutes Koko Kay MD May 26, 2016 14:32
--- NOTE | 2016-05-26 15:30 | NUR ---
Wound Care Wound evaluation order received, pt seen at bedside has been on a Bipap machine over night and has developed an area of unblanchable redness at the bridge of his nose that is approximately dime size. BiPap mask is inspected and may be tighter than it needs to be to continue to work properly, i loosened the straps at head and neck without the device alarming. I also placed a mepilx adhesive foam cut in the shape of an inverted Y over his nose with immediate report by the patient of increased comfort. Discussed with patients nurse how I had cut the mepilex and recommend this be used anytime he has the Bipap on. Stage 1 Pressure injury bridge of nose.
--- NOTE | 2016-05-26 16:22 | NUR ---
Social Work: Continued Discharge Planning D: Pt discussed in am rounds. Pt transferred to [facility] and currently on BIPAP. Previous RUBBER THREAD SPOOLER notes state pt was previously at [facility] however family is not willing to have the pt return. Family preference was for [facility] or [facility]. At this time, both of these facilities are not able to accept patients. Family declined to provide alternative preferences. RUBBER THREAD SPOOLER attempted to meet with family at bedside to discuss discharge planning and preferences. Family is not present. RUBBER THREAD SPOOLER left two messages for pt's daughter, Michelle @ [phone] requesting return phone call. PPW is on chart. A: Pt likely to require skilled rehab at time of discharge. P: RUBBER THREAD SPOOLER to continue to attempt contact with pt's family to discuss discharge planning; RUBBER THREAD SPOOLER to utilize [facility] RN if pt's family continues to decline to provide preference for SNF placement. ISHAAN Otero
--- NOTE | 2016-05-26 16:27 | PROG NOTE ---
[address] [address] PROGRESS NOTE PATIENT: JOSIE DE LEON : 1935 MR#: [id number] ADMIT: 05/21/2016 JOB ID: [id number] DATE: 05/26/2016 CHIEF COMPLAINT: The patient came in with a cough, increased shortness of breath, heart failure. Unfortunately he did not respond very well to diuresis and has an elevated creatinine. There has also been some concerns about antibiotics he has been on effecting his kidneys and now his creatinine has increased as high as 2.32 with a BUN of 58. He has also had some confusion. He was placed on BiPAP with some improvement overall. I have spoken with renal about the need to diurese and they are concerned that he has ATN. They are following along. PHYSICAL EXAMINATION: Blood pressure is 116/57, heart rate 60s, sats are 97% on BiPAP. He is in no acute distress. He is not speaking to me as he is on BiPAP. Heart examination is regular rate and rhythm. Lungs somewhat coarse. Extremities with continued edema to the mid calf. LABORATORIES: Show a sodium 138, potassium 4.1, chloride and bicarbonate 91 and 33 respectively. BUN and creatinine 50 and 2.32. White count 11.3, H and H 7.5 and 25.7, platelets 118,000. Chest x-ray from May 24 show findings consistent with pulmonary edema. CURRENT MEDICATIONS: Include pip-tazo, Pletal, metoprolol 50 b.i.d., prednisone, amlodipine, levofloxacin, atorvastatin. Heart rates have been better controlled with the re-addition of metoprolol. IMPRESSION: The patient has fairly well preserved LV systolic function. Some dilation of his RV with some slight reduction of RV systolic function with evidence for RV volume overload. Unfortunately he has not responded as well to Lasix as we would have hoped and his creatinine has risen. He is now being seen by renal who is going to continue to try Lasix on him. He is now on BiPAP. PLANS AND RECOMMENDATION: 1. I would continue with metoprolol to help control his AFib rate. It is not clear if he was on these medications during the period of time from his discharge to his recent admission. 2. Appreciate Nephrology's help in terms of helping with diuresis in this gentleman. [place]
[2016-05-27] VITALS (11 sets, daily range): BP systolic 108–125; BP diastolic 63–79; PULSE 76–92; RESP 16–20; O2SAT 95–98
[2016-05-27] MEDS: Piperacillin-Tazo 3.375 Gm Inj 3.375 GM in Dextrose 5% Minibag Plus 50 ML IV SCH ×3 (00:26→15:52)
[2016-05-27 03:56] LABS: Mean Corpuscular Hemoglobin 24.4 pg (27.0-35.0); Mean Corpuscular Volume 82.1 fL (81-100)
--- NOTE | 2016-05-27 05:29 | NUR ---
Respiratory / Mentation Pt on BiPAP 40% FiO2 with SpO2 approx. 95-98% throughout shift; instant desaturation to 70s when BiPAP removed for medication administration. Pt alert to self only; attempted to pull at IV line at HS - when asked what he was doing, pt responded "I'm celebrating! It's my birthday!" Pt reoriented to date, but pt continued to insist that it was his birthday and that he needed to celebrate. SCDs in place, pillows positioned for pressure relief, pt resting throughout rest of shift. No c/o pain or dyspnea. VSS. Tele afib 80s-90s with PVCs.
--- NOTE | 2016-05-27 05:40 | NUR ---
Telemetry Pt had 10 beats of VT at approx. 2257; asymptomatic; MD aware; no new orders at this time.
[2016-05-27] MEDS: predniSONE 20 mg Tablet PO SCH (08:18)
[2016-05-27] MEDS: Pantoprazole 40 mg ER24 Tablet PO SCH (08:18)
--- NOTE | 2016-05-27 09:11 | NUR ---
Social Work: Continued Discharge Planning D: [employer]APHIC [employer]TER received t/c from pt's daughter Michelle ([phone]). OFFSET L[employer]APHIC PR[employer] SETTER reviewed sw role and need to do further discharge planning as [facility] are not currently accepting patients. Dtr states that she and her family have done extensive research of SNF's and they are unwilling to send the pt to any other facility besides these locations. OFFSET L[employer]OGRAPHIC PRESS SETTER discussed options moving forward and possible consequences if pt does not have a plan in place when MD writes orders. Family states that they will likely appeal the pt's discharge if this were to happen. OFF[employer] L[employer]OGRAPHIC PR[employer] SETTER affirmed that it was their right under Medicare to appeal a discharge. OFF[employer] L[employer]OGRAPHIC PRESS SETTER also informed them that f the [facility] was [facility], and a discharge location was still not determined, the pt and family would be issued an ABN and they would be financially responsible for the subsequent days of hospitalization. Pt's daughter states that she understands however continues to decline to provide alternative preferences for the pt's discharge location. A: Pt who will require skilled rehab at time of discharge P: Evolving; OFFSET L[employer]OGRAPHIC PRESS SETTER to continue to check in with [facility] as pt's care progresses to determine if they are able to accept pt ISHAAN Otero
[2016-05-27] MEDS ORDERED: Furosemide 10 mg/mL 10 mL Inj IVPUSH SCH (13:10)
--- NOTE | 2016-05-27 13:12 | PCM.PNMED ---
Subjective Date of Service May 27, 2016 Subjective Patient feels frustrated and believes this situation is futile. He states he would like to stop everything and just be left to . He is short of breath but denies pain. His understands what he is saying and they will talk his family this afternoon. No changes will be made until then. Exam Vital Signs Vital Sign - Last Date Time Temp Pulse Resp B/P Pulse Ox O2 Delivery O2 Flow Rate FiO2 05/27/16 12:21 35.9 79 18 108/79 97 BiPAP 40 05/25/16 23:21 5.00 Intake and Output 05/26/16 05/26/16 05/27/16 Cumulative From/Thru 15:00 23:00 07:00 05/21/16 16:09 - 05/27/16 06:12 Intake Total 166 ml 129 ml 8355 ml Output Total 600 ml 400 ml 8800 ml Balance -434 ml -271 ml -445 ml Intake Oral 60 ml 0 ml 4154 ml IV Total 106 ml 129 ml 4201 ml Output Urine Total 600 ml 400 ml 8800 ml # Bowel Movements 0 6 Exam Patient is lying flat and appears unhappy but has fluent speech. He denies hallucinations. Oropharynx is unremarkable. Neck is supple. Lungs are clear he has no expiratory wheezing Heart is irregular without murmur Abdomen soft. Extremities are free of edema. IVs and Medications Medications Reviewed: Medications were reviewed in detail Lab and Diagnostics Result Diagram: 05/27/1633405/27/16334 Assessment & Plan 80-year-old male with increasing shortness of breath with a history of CHF and possible new onset of pneumonia 1. Acute hypoxic respiratory failure. The patient is to maintain on BiPAP since last night. He is somewhat improved. There is a concern for possible pneumonia as well as pulmonary edema secondary to diastolic heart failure. Plan is to diurese and follow clinically as well as continue the current antibiotics, Zosyn and levofloxacin.. 2. Acute on chronic diastolic heart failure. The plan is as above to continue to diuresis. 3. Acute kidney injury, worsening. Patient was seen by Dr. Wilkerson given 1 dose of Lasix IV. The patient does have evidence of global anasarca with 2+ edema in his legs today. We will continue to diuresis to see if this improves both anasarca as well as his pulmonary status. Is concerned about a possible vasculitic hepatopulmonary syndrome. As the patient is stating he would like to withdraw all medical measures we will not plan on corticosteroids or other medications for this possibility. 4. Possible pneumonia - Likely HCAP due to recent admission -Continue Zosyn and levofloxacin. And follow clinically 5. Microcytic anemia Hemoccult stools and follow hematocrit, this is remained stable. 6. Chronic atrial fibrillation, POA. -Patient currently not on warfarin as per requested by patient -Rate control with metoprolol 50 twice a day as per cardiology recommendations 7. Possible COPD exacerbation. Continue patient's steroids as currently dosed and bronchodilator treatments. GI ppx: Pantoprazole DVT ppx: Per protocol pharmacy managing Anti emetics / Analgesics prn as per protocol Code: Full code The patient indicating a wish to change level care and pursue comfort care. The family is assembling to talk with him. Will plan on following up in 2 DNR/ DNI and possible comfort care measures later today. 1500 addendum. Met with patient, , daughter, granddaughter and son-in-law. Prolonged end-of-life discussion. The patient with family support is asked for transition to comfort care. We will stop all active medical support measures and placed on comfort care order set with a morphine continuous infusion. Pain Evaluation: Adequate Pain Control GI Prophylaxis: Proton Pump Inhibitor VTE Prophylaxis: Sub-Q Heparin (Unfractionated) VTE Mechanical Devices: Intermittant Pneumatic CD Resuscitation Status: CPR: Attempt Resuscitation Time spent 25 minutes, not with as well. Koko Kay MD May 27, 2016 13:12 4. Possible pneumonia - Likely HCAP due to recent admission -Continue Zosyn and levofloxacin. And follow clinically 5. Microcytic anemia Hemoccult stools and follow hematocrit, this is remained stable. 6. Chronic atrial fibrillation, POA. -Patient currently not on warfarin as per requested by patient -Rate control with metoprolol 50 twice a day as per cardiology recommendations 7. Possible COPD exacerbation. Continue patient's steroids as currently dosed and bronchodilator treatments. GI ppx: Pantoprazole DVT ppx: Per protocol pharmacy managing Anti emetics / Analgesics prn as per protocol Code: Full code The patient indicating a wish to change level care and pursue comfort care. The family is assembling to talk with him. Will plan on following up in 2 DNR/ DNI and possible comfort care measures later today. 1500 addendum. Met with patient, , daughter, granddaughter and son-in-law. Prolonged end-of-life discussion. The patient with family support is asked for transition to comfort care. We will stop all active medical support measures and placed on comfort care order set with a morphine continuous infusion. Pain Evaluation: Adequate Pain Control GI Prophylaxis: Proton Pump Inhibitor VTE Prophylaxis: Sub-Q Heparin (Unfractionated) VTE Mechanical Devices: Intermittant Pneumatic CD Resuscitation Status: CPR: Attempt Resuscitation Time spent 25 minutes, not with as well. Koko Kay MD May 27, 2016 13:12
[2016-05-27] MEDS ORDERED: Artificial Tears 15 mL Ophthalmic Solution AFFECT_EYE PRN (15:20)
[2016-05-27] MEDS ORDERED: Ondansetron 2 mg/mL 2 mL Inj IVPUSH PRN (15:20)
[2016-05-27] MEDS ORDERED: Morphine 100 mg/100 mL NS 100 MG in IV Premix 1 EACH IV SCH (15:20)
--- NOTE | 2016-05-27 18:26 | NUR ---
Comfort care Pt decided today that he did not want anymore treatment. Pt told this RN he wanted to just take a "shot and end it" Dr. Kay came and talked to patient and family. Family is supportive of patient's decision. Pt was started on a morphine drip, taken off tele and off bipap. Pt wants no medical intervention he stated.
[2016-05-27] MEDS: Atropine 1% 5 mL Ophthalmic Solution PO PRN ×2 (18:48→22:15)
[2016-05-27] MEDS ORDERED: Vancomycin Serum Trough XX ONE (20:00)
[2016-05-28] MEDS: Piperacillin-Tazo 3.375 Gm Inj 3.375 GM in Dextrose 5% Minibag Plus 50 ML IV SCH (00:30)
[2016-05-28 01:27] LABS: Hepatitis A Antibody IgM Negative (Negative); Hepatitis B Core Antibody IgM Negative (Negative)
--- NOTE | 2016-05-28 02:40 | NUR ---
Comfort care/End of Life Patient on 1ml/hour morphine gtt at start of shift. Somnolent, snoring respirations. Ativan IV given with relief of restlessness and agitation. Patient's son-in-law at bedside; discussed patient's care and comfort with son-in-law. Morphine drip maintained at 1ml/hour rate. Patient noted to have stopped breathing at 0150; absence of heart beat and respirations verified by charge nurse Babar. Son-in-law contacting local family.
--- NOTE | 2016-05-28 02:44 | PROG NOTE ---
[address] [address] PROGRESS NOTE PATIENT: JOSIE DE LEON : 1935 MR#: [id number] ADMIT: 05/21/2016 JOB ID: [id number] DATE: 05/27/2016 CHIEF COMPLAINT: Shortness of breath. SUBJECTIVE: The patient feels very frustrated. He is very short of breath. He remains in atrial fibrillation. He has renal failure and he is still on BiPAP. CURRENT MEDICATIONS: 1. Aspirin 81 mg daily. 2. Lipitor 40 mg daily. 3. Lasix 80 mg IV daily. 4. Amlodipine 10 mg daily. 5. Metoprolol tartrate 50 mg twice a day. 6. Prednisone 40 mg daily. 7. Protonix 40 mg daily. 8. Zosyn. PHYSICAL EXAMINATION: Temperature 36.6, blood pressure 108/79 up to 125/71, pulse he is in AFib 76 up to 92. He is saturating 95-48%, on 40% FiO2 delivered via Opti mask. Chronically ill-appearing older man, very tired, on BiPAP. He is not speaking to me as he is on BiPAP. Heart: Shows irregularly irregular pulse. Lungs: Coarse. Extremities: With moderate edema to the mid calf. LABORATORIES: Reviewed. He continues to have renal insufficiency. His creatinine is 2.8. It is actually up from 2.3 yesterday. He has low albumin of 2.6. Transaminases are normal. Most recent radiograph May 24 showed increased bilateral pulmonary edema which is either cardiogenic or shows atypical pneumonia. Labs showed negative blood cultures. White count was 20 on admission, is now down to 9. He continues to have significant left shift with 95% neutrophils, but it is difficult to interpret due to current use of prednisone. ASSESSMENT AND PLAN: This is an 80-year-old man. He has chronic atrial fibrillation and coronary artery disease, of course status post bypass operation. He comes in with worsening shortness of breath and productive cough with yellowish sputum. Labs on admission were significant for severe leukocytosis, elevated lactic acid and difficult to interpret elevated troponins in light of renal insufficiency. His most recent echocardiogram performed May 25, 2016, showed EF 55%, mildly dilated RV, mild to moderately reduced systolic function, moderate tricuspid regurgitation, pulmonary systolic pressure of 58 mmHg. The estimated right atrial pressure and RV pressures are similar, but RV function was somewhat less vigorous. I think this patient has acute on chronic renal failure in light of underlying stage 3 chronic kidney disease. He has bilateral interstitial opacities which are either cardiogenic or due to infection. He is already on antibiotics and an attempts to diurese him have been unsuccessful. They have not made any headway in facilitating improved respiratory status despite attempts to diurese him and despite being out more than in by 400 cc on a daily basis. My impression is that this pulmonary edema is noncardiogenic. The only way to know for sure is to do a right heart catheterization and that also presents a set of risks in this man with tenuous respiratory status. I think our options are quite limited and he is life threatening right now, and unfortunately we on the cardiology service, have very little to offer this 80-year-old with acute respiratory failure and is not even clear to me how much he is likely to benefit from hemodialysis or ultrafiltration to remove the fluid off. I think he would benefit from a palliative care consultation and if he chooses to go that route, that is totally reasonable. If he chooses not to we can talk about cardiac catheterization to better ascertain his volume status. We can just do a right heart cath and give him no iodinated contrast whatsoever. Thank you for the opportunity to evaluate him. [place]
--- NOTE | 2016-05-28 05:42 | NUR ---
Home Notification Patient was member of the [employer]. [employer] contacted at to pickle solution maker the remains.
--- NOTE | 2016-05-28 13:02 | PCM.DC.MED ---
Discharge Summary Date of Service May 28, 2016 Dates of Hospitalization Date of Hospital Admission May 21, 2016 at 18:31 Date of Discharge: May 28, 2016 Providers: Admitting Physician: Caleb Troncoso MD Primary Care Physician: Roge Salazar PA-C Attending Physician: Caleb Troncoso MD Diagnosis at Time of Discharge Diagnosis at Time of Discharge 1. Expiration 2. Probable acute on chronic diastolic heart failure 3. Possible pneumonia 4. 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 Acute on chronic hypoxic respiratory failure 6. Acute kidney injury 7. Chronic atrial fibrillation Consultations Cardiology, nephrology Procedures XRay, CTs & MRIs Multiple chest x-rays revealing pulmonary edema Renal ultrasound revealing medical kidney disease but no obstruction Cardiac Echo Impression 1. Normal left ventricular size with moderately increased wall thickness with an estimated EF of 55% 2. Mildly dilated right ventricle with mild to moderately reduced systolic function. At least moderate tricuspid regurgitation. The estimated RVSP is 58 mm Hg 3. Moderate mitral regurgitation Invasive Procedures None Brief History 80 year old male with h/o Hypertension, Hyperlipidemia, CHF, on 2L O2 at home presented to the ED via EMS with c/o worsening shortness of breath and productive cough. He states that symptoms started 1 week ago which is gradually worsening and is now associated with yellowish sputum production. He denies any fever, chest pain, vomiting, diarrhea, abdominal pain. He was admitted to [facility] with healthcare related pneumonia 1 month ago. In ED he was tachycardic , mildly hypertensive, SpO2 98% on 4L [place] oxygen. Labs were significant for severe leukocytosis (20.1), low hematocrit (31.9), elevated lactic acid (2.9), elevated troponin (0.038) [place] [address]. Hospital Course 80-year-old male with increasing shortness of breath with a history of CHF and possible new onset of pneumonia 1. Acute hypoxic respiratory failure. The patient is to maintain on BiPAP since last night. He is somewhat improved. There is a concern for possible pneumonia as well as pulmonary edema secondary to diastolic heart failure. Plan is to diurese and follow clinically as well as continue the current antibiotics, Zosyn. 2. Acute on chronic diastolic heart failure. The plan is as above to continue to diuresis. 3. Acute kidney injury. Patient was seen by Dr. Wilkerson given 1 dose of Lasix IV. The patient does have evidence of global anasarca with 2+ edema in his legs today. We will continue to diuresis to see if this improves both anasarca as well as his pulmonary status. 4. Possible pneumonia - Likely HCAP due to recent admission -Continue Zosyn and follow clinically 5. Microcytic anemia Hemoccult stools and follow hematocrit 6. Chronic atrial fibrillation, POA. -Patient currently not on warfarin as per requested by patient -Rate control with metoprolol 50 twice a day as per cardiology recommendations 7. Possible COPD exacerbation. Continue patient's steroids as currently dosed and bronchodilator treatments. GI ppx: Pantoprazole DVT ppx: Per protocol pharmacy managing Anti emetics / Analgesics prn as per protocol Code: Full code Disposition: The patient is currently responding well to antibiotic therapy and seems to be improving overall. Cardiology is in agreement that the patient's CHF exacerbation is also driving some of the patient's shortness of breath as well. However currently in the setting of ISELA Lasix has been discontinued. We will defer to nephrology for further recommendations as to diuresing this particular patient. GI Prophylaxis: Proton Pump Inhibitor VTE Prophylaxis: Sub-Q Heparin (Unfractionated) VTE Mechanical Devices: Venous Foot Pump Resuscitation Status: CPR: Attempt Resuscitati Hospital course. This patient was admitted with ongoing deterioration in terms of respiratory failure. He also had evidence of acute GI kidney injury in context of more progressive renal failure. 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 The patient was admitted and certain antibiotics for possible superimposed bacterial pneumonia. Patient is also diuresed for pulmonary edema was felt to be possible acute on chronic diastolic heart failure. Because of worsening status the patient was transferred to the second floor on May 26. He was supported with BiPAP for acute hypoxic respiratory failure. Within the next 24 hours he however made clear that he had no interest in ongoing medical supportive measures. On the morning of May 27 he requested to be O wound and allowed to . Conference is held with his family including and daughter. Ultimately he requested comfort care measures and they support this. The patient was taken off from active supportive medical measures and placed on a morphine drip. 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 Exam Vital Signs (Last) Date Time Temp Pulse Resp B/P Pulse Ox O2 Delivery O2 Flow Rate FiO2 05/27/16 20:18 Supplement Oxygen 05/27/16 13:30 77 18 97 40 05/27/16 12:21 35.9 108/79 05/25/16 23:21 5.00 Exam Prior to expiration the patient was lethargic and somewhat confused. He also had evidence of increased stress respiratory rate and effort. Heart was regular without murmur Extremities no before 1+ edema Skin is free of rash or lesions. Test 05/21/16 17:00 05/22/16 10:30 05/23/16 05:40 05/24/16 06:05 Lactic Acid Level 2.9mmol/L (0.4-2.0) Pro-B-Type Natriuretic Peptide 12084yk/mL (0-486) Total Creatine Kinase 40U/L (21-232) Creatine Kinase MB 7.2ng/mL (0.0-10.4) Creatine Kinase MB % 18.0% (0.0-5.0) Troponin T 0.045ug/L (0.0-0.011) Hematology Comments Procalcitonin 0.39ng/mL (See Comment) Test 05/24/16 19:30 05/25/16 01:50 05/25/16 20:16 05/26/16 06:28 Activated Partial Thromboplast Time 70.2sec (22.8-33.0) Vancomycin Level Trough 19.2mcg/mL Magnesium Level 2.1mg/dL (1.6-2.6) Urine Color Yellow (YELLOW) Urine Appearance Clear (CLEAR,HAZY) Urine pH 5.0 (5.0-8.0) Urine Specific [place] 1.028 (1.003-1.035) Urine Protein 30mg/dL (NEG,TRACE) Urine Glucose (UA) Negativemg/dL (NEGATIVE) Urine Ketones Negativemg/dL (NEGATIVE) Urine Occult Blood Large (NEGATIVE) Urine Nitrite Negative (NEGATIVE) Urine Bilirubin Negative (NEGATIVE) Urine Urobilinogen Normalmg/dL (NORMAL) Urine Leukocyte Esterase Negative (NEGATIVE) Urine RBC 11-50/hpf (0-2) Urine WBC 0-5/hpf (0-5) Urine Epithelial Cells None/hpf (NONE-MOD) Urine Crystals None seen (NONE SEEN) Urine Bacteria Few/hpf (NONE-FEW) Urine Hyaline Casts None/lpf (NONE) Urine Granular Casts None seen (NONE SEEN) Urine Waxy Casts None seen (NONE SEEN) Urine Red Blood Cell Casts None seen (NONE SEEN) Urine White Blood Cell Casts None seen (NONE SEEN) Urine Mucus None seen (None Seen) Urine Trichomonas None seen (NONE SEEN) Urine Yeast None (NONE SEEN) Urinalysis Comment None Urine Culture Reflexed Not indicated Neutrophils (%) (Auto) 95.4% (40-74) Lymphocytes (%) (Auto) 2.4% (14-46) Monocytes (%) (Auto) 1.7% (4-12) Eosinophils (%) (Auto) 0% (0-5) Basophils (%) (Auto) 0% (0-3) Prothrombin Time 9.6sec (8.1-12.5) Prothromb Time International Ratio 0.90ratio Iron Level 37ug/dL (35-150) Total Iron Binding Capacity 267ug/dL (250-450) Percent Iron Saturation 14%sat (15-50) Unsaturated Iron Binding 230.1ug/dL Random Vancomycin Level 25.9ug/mL Rx Test 05/26/16 12:25 05/27/16 03:35 Erythrocyte Sedimentation Rate 104mm/hr (0-30) Rheumatoid Factor 11.7IU/mL (0.0-13.9) Complement C3 55mg/dL (82-167) Complement C4 <6mg/dL (14-44) White Blood Count 9.0th/mm3 (3.8-10.1) Red Blood Count 2.91mil/mm3 (4.40-5.80) Hemoglobin 7.1g/dL (13.8-17.2) Hematocrit 23.9% (41.0-50.0) Mean Corpuscular Volume 82.1fL (81-100) Mean Corpuscular Hemoglobin 24.4pg (27.0-35.0) Mean Corpuscular Hemoglobin Concent 29.7% (32.0-37.0) Red Cell Distribution Width 24.1% (12.3-15.4) Platelet Count 105bil/L (150-400) Sodium Level 138mEq/L (134-144) Potassium Level 4.0mEq/L (3.5-5.2) Chloride Level 90mEq/L (97-108) Carbon Dioxide Level 34mmol/L (18-29) Blood Urea Nitrogen 73mg/dL (8-27) Creatinine 2.77mg/dL (0.76-1.27) Estimat Glomerular Filtration Rate 23mL/min (>59) Glucose Level 106mg/dL (60-99) Calcium Level 8.2mg/dL (8.5-10.1) Total Bilirubin 0.5mg/dL (0.0-1.2) Aspartate Amino Transf (AST/SGOT) 28U/L (0-50) Alanine Aminotransferase (ALT/SGPT) 42U/L (0-44) Alkaline Phosphatase 62U/L (25-160) Total Protein 5.0g/dL (6.4-8.4) Albumin 2.6g/dL (3.4-5.0) Hepatitis A IgM Antibody Negative (Negative) Hepatitis B Surface Antigen Negative (Negative) Hepatitis B Core IgM Antibody Negative (Negative) Hepatitis C Antibody <0.1s/co ratio (0.0-0.9) Hepatitis C Comment Comment (.) Discharge Medications Discharge Medications Amlodipine (Amlodipine) 10 Mg Tablet 10 MG PO DAILY (Reported) Atorvastatin Calcium (Atorvastatin Calcium) 40 Mg Tablet 40 MG PO HS (Reported) Furosemide (Furosemide) 40 Mg Tablet 40 MG PO DAILY (Reported) Ipratropium/Albuterol Sulfate (Iprat-Albut 0.5-3(2.5) mg/3 mL Inhalant Soln) 3 Ml Ampul.neb 3 ML IH Q6 (Reported) Metoprolol Succinate ER (Metoprolol Succinate ER) 100 Mg Tab.er.24h 100 MG PO DAILY (Reported) Pantoprazole DR (Pantoprazole DR) 40 Mg Tablet.dr 40 MG PO DAILY (Reported) Potassium Chloride (Potassium Chloride) 10 Meq Capsule.er 10 MEQ PO DAILY ( Reported) TAKE WITH FOOD Prednisone (PredniSONE) 50 Mg Tablet 60 MG PO DAILY (Reported) As needed ([Maalox Advanced]) 30 ML PO Q6H PRN PRN For Indigestion (Reported) Albuterol Neb Soln (Albuterol Neb Soln) 1.25 Mg/3 Ml Vial.neb 1.25 MG INHALATION Q2H PRN PRN For Shortness of Breath (Reported) Docusate Sodium (Docusate Sodium) 250 Mg Capsule 250 MG PO BID PRN PRN For Constipation (Reported) Melatonin (Melatonin) 5 Mg Tablet 5 MG PO HS PRN PRN Insomnia (Reported) Miscellaneous Medications Fosinopril Sodium (Fosinopril Sodium) 10 Mg Tablet 10 MG PO (Reported) Followup Plan Disposition: Time spent 60 minutes Koko Kay MD May 28, 2016 13:02
== END 2016-05-28 01:50 | disposition expired | DRG 291 ==
LOC: SED 16:04 → EDUNIT# 16:04 → EDBD 16:04 → MPC 18:31 → PCC 05-26 00:17
PROVIDERS: ADMIT Internal Medicine; ATTEND Internal Medicine
PROC: 4A033R1 Measurement of Arterial Saturation, Peripheral, Percutaneous Approach (ICD-10-PCS; principal; 2016-05-25)
PROC: 4A033R1 Measurement of Arterial Saturation, Peripheral, Percutaneous Approach (ICD-10-PCS; 2016-05-26)
DX: I50.33 Acute on chronic diastolic (congestive) heart failure (principal); J18.9 Pneumonia, unspecified organism; N17.0 Acute kidney failure with tubular necrosis; J96.21 Acute and chronic respiratory failure with hypoxia; M31.0 Hypersensitivity angiitis; I13.0 Hypertensive heart and chronic kidney disease with heart failure and stage 1 through stage 4 chronic kidney disease, or unspecified chronic kidney disease; E87.2 Acidosis; J44.1 Chronic obstructive pulmonary disease with (acute) exacerbation; Z99.81 Dependence on supplemental oxygen; Z79.82 Long term (current) use of aspirin; Z87.891 Personal history of nicotine dependence; I25.10 Atherosclerotic heart disease of native coronary artery without angina pectoris; I25.5 Ischemic cardiomyopathy; E78.5 Hyperlipidemia, unspecified; D50.9 Iron deficiency anemia, unspecified; N18.3 Chronic kidney disease, stage 3 (moderate); I08.1 Rheumatic disorders of both mitral and tricuspid valves; I48.2 Chronic atrial fibrillation; Z51.5 Encounter for palliative care; Z95.1 Presence of aortocoronary bypass graft